=== PATIENT | male | born 1955 | race Caucasian/White ===

== ENCOUNTER 2017-08-07 21:31 | Inpatient (IN) | payer MEDICARE, MEDICAID ==
[~2017-08-07] VITALS: Ht 170.2 cm; Wt 47.6 kg
--- NOTE | 2017-08-07 21:31 | ER Report ---
History and Physical Time Seen By MD: 21:31 HPI/ROS CHIEF COMPLAINT: Vomiting,? Aspiration HISTORY OF PRESENT ILLNESS: 62-year-old male with a history of a aphasia who communicates with Ipad tablet. Brought from the custodial by EMS with vomiting and decreased O2 sats. Patient on arrival is expressing pain in his throat. My pointing in his mouth. Patient was given a tablet but did not communicate anything to us. His vital signs are stable. There were previous laboratory studies drawn earlier in the day that show potassium of 2.6. WBC count of 13,000 with a left shift, 88 neutrophils, bicarbonate of 40. Additional history is obtained from custodial paperwork. There are no recent old records on this patient. There are some custodial visits from 2015 that are noted. REVIEW OF SYSTEMS: Respiratory: No cough, no dyspnea. Cardiovascular: No chest pain, no palpitations. Gastrointestinal: As above Musculoskeletal: No back pain. Allergies: Coded Allergies: No Known Drug Allergies (Unverified , 08/07/17) Home Meds Reported Medications Cholecalciferol (Vitamin D3) (VITAMIN D3) 1,000 Unit Tablet, 1000 UNIT PO, TAB 08/07/17 Ibuprofen (IBUPROFEN) 200 Mg Tablet, 1 TAB PO Q6H, TAB 08/07/17 Acetaminophen (TYLENOL) 325 Mg Tablet, 500 MG PO, TAB 08/07/17 Past Medical/Surgical History Rhabdomyolysis, aphasia, other symbolic dysfunctions history of falling, developmental disorder of Speech and language, patient is full code Reviewed Nurses Notes: Yes Old Medical Records Reviewed: Yes Constitutional Vital Sign - Last 24 Hours 08/07/17 08/07/17 08/07/17 08/07/17 21:32 21:34 21:34 21:36 Temp 98.7 Pulse 98 98 Resp 18 24 B/P (MAP) 119/89 (99) 119/86 Pulse Ox 90 92 O2 Delivery Nasal Cannula O2 Flow Rate 1.0 08/07/17 08/07/17 08/07/17 08/07/17 21:41 21:46 21:50 21:50 Pulse 99 97 96 Resp 21 23 16 Pulse Ox 92 92 94 O2 Delivery Nasal Cannula O2 Flow Rate 3.0 08/07/17 08/07/17 08/07/17 08/07/17 21:51 21:56 22:26 22:30 Pulse 91 93 98 Resp 21 22 27 B/P (MAP) 122/88 (99) Pulse Ox 100 91 96 2/19/18 2/19/18 2/19/18 2/19/18 22:31 22:36 22:41 22:46 Pulse 93 89 91 94 Resp 19 17 18 16 Pulse Ox 98 98 99 94 2/19/18 2/19/18 2/19/18 2/19/18 22:51 22:56 23:00 23:01 Pulse 88 94 89 Resp 14 14 16 B/P (MAP) 123/89 (100) Pulse Ox 98 97 96 2/19/18 2/19/18 2/19/18 2/19/18 23:06 23:11 23:16 23:21 Pulse 86 86 88 87 Resp 22 16 14 15 Pulse Ox 97 97 97 97 2/19/18 2/19/18 2/19/18 2/19/18 23:30 23:36 23:51 23:56 Pulse 88 98 Resp 19 15 18 B/P (MAP) 115/82 (93) Pulse Ox 98 2/20/18 2/20/18 2/20/18 2/20/18 00:01 00:30 00:31 00:46 Pulse 107 90 84 Resp 24 16 16 B/P (MAP) 115/87 (96) Pulse Ox 96 98 2/20/18 2/20/18 2/20/18 2/20/18 01:00 01:16 01:30 01:31 Pulse 84 86 Resp 13 13 B/P (MAP) 108/76 (87) 111/78 (89) Pulse Ox 99 98 2/20/18 2/20/18 2/20/18 2/20/18 01:46 01:51 01:56 02:00 Pulse 87 89 85 Resp 20 20 12 B/P (MAP) 111/73 (86) Pulse Ox 98 96 96 2/20/18 2/20/18 2/20/18 2/20/18 02:01 02:06 02:11 02:16 Pulse 81 98 81 81 Resp 15 18 17 14 Pulse Ox 97 96 97 97 2/20/18 2/20/18 2/20/18 2/20/18 02:21 02:30 02:31 02:36 Pulse 80 79 80 Resp 13 13 B/P (MAP) 103/67 (79) Pulse Ox 98 97 97 Physical Exam Vital signs stable, afebrile, pulse ox 90% on 3 L General Appearance: The patient is alert, has no immediate need for airway protection and no current signs of toxicity. No acute distress HEENT: Pupils equal and round no injection. TMs normal, oropharynx with moderate erythema Respiratory: Chest is non tender, lungs are clear to auscultation. Decreased breath sounds in the right base, no Rales, or wheezing Cardiac: regular rate and rhythm Gastrointestinal: Abdomen is soft and non tender, no masses, bowel sounds normal. Musculoskeletal: Neck: Neck is supple and non tender. No lymphadenopathy Extremities have full range of motion and are non tender. No edema Skin: No rashes or lesions. DIFFERENTIAL DIAGNOSIS: After history and physical exam differential diagnosis was considered for abdominal pain including but not limited to appendicitis, cholecystitis, gastritis and urinary tract infection. Medical Decision Making Data Points Result Diagram: 08/07/17212408/08/17 0808 Laboratory Hematology Test 08/07/17 21:25 08/08/17 00:03 08/08/17 00:24 Red Blood Count 5.32 M/uL (4.00-5.60) Mean Corpuscular Volume 89.7 fL (80.0-96.0) Mean Corpuscular Hemoglobin 31.0 pg (26.0-33.0) Mean Corpuscular Hemoglobin Concent 34.6 g/dL (32.0-36.0) Red Cell Distribution Width 13.3 % (11.5-14.5) Mean Platelet Volume 7.3 fL (7.2-11.1) Neutrophils (%) (Auto) 86.2 % (39.4-72.5) Lymphocytes (%) (Auto) 5.4 % (17.6-49.6) Monocytes (%) (Auto) 6.1 % (4.1-12.4) Eosinophils (%) (Auto) 1.4 % (0.4-6.7) Basophils (%) (Auto) 0.9 % (0.3-1.4) Nucleated RBC Relative Count (auto) 0.0 /100WBC Neutrophils # (Auto) 11.9 K/uL (2.0-7.4) Lymphocytes # (Auto) 0.7 K/uL (1.3-3.6) Monocytes # (Auto) 0.8 K/uL (0.3-1.0) Eosinophils # (Auto) 0.2 K/uL (0.0-0.5) Basophils # (Auto) 0.1 K/uL (0.0-0.1) Nucleated RBC Absolute Count (auto) 0.00 K/uL Total Bilirubin 0.7 mg/dl (0.2-1.3) Aspartate Amino Transf (AST/SGOT) 35 U/L (0-35) Alanine Aminotransferase (ALT/SGPT) 36 U/L (0-56) Alkaline Phosphatase 95 U/L (0-126) C-Reactive Protein 6.7 mg/dl (<1.0) Total Protein 6.4 gm/dl (6.3-8.2) Albumin 3.1 g/dl (3.5-5.0) Amylase Level 70 U/L (0-110) Lipase 206 U/L (23-300) Urine Color Pale yellow Urine Clarity Cloudy Urine pH 6.0 pH (4.8-9.5) Urine Specific [place] 1.025 Urine Protein 30 mg/dL (NEGATIVE) Urine Glucose (UA) Negative mg/dL (NEGATIVE) Urine Ketones 40 mg/dL (NEGATIVE) Urine Blood Negative (NEGATIVE) Urine Nitrite Negative (NEGATIVE) Urine Bilirubin Moderate (NEGATIVE) Urine Urobilinogen 0.2 mg/dL (0.2-1.9) Urine Leukocyte Esterase Negative (NEGATIVE) Urine RBC 2 /HPF (0-2/HPF) Urine WBC 4 /HPF (0-5/HPF) Urine Squamous Epithelial Cells Moderate /LPF (</=FEW) Urine Transitional Epithelial Cells Few /LPF (NONE-FEW) Urine Amorphous Crystals Few /HPF Urine Bacteria Negative /HPF (NONE-FEW) Urine Hyaline Casts Few /LPF (NONE-FEW) Urine Mucus Moderate /HPF (NONE-FEW) Group A Streptococcus Screen Negative (NEGATIVE) Troponin I 0.043 ng/ml Chemistry Test 08/07/17 21:25 08/08/17 00:03 08/08/17 00:24 White Blood Count 13.8 k/uL (4.5-11.0) Red Blood Count 5.32 M/uL (4.00-5.60) Hemoglobin 16.5 g/dL (14.0-18.0) Hematocrit 47.7 % (42.0-52.0) Mean Corpuscular Volume 89.7 fL (80.0-96.0) Mean Corpuscular Hemoglobin 31.0 pg (26.0-33.0) Mean Corpuscular Hemoglobin Concent 34.6 g/dL (32.0-36.0) Red Cell Distribution Width 13.3 % (11.5-14.5) Platelet Count 382 K/uL (150-450) Mean Platelet Volume 7.3 fL (7.2-11.1) Neutrophils (%) (Auto) 86.2 % (39.4-72.5) Lymphocytes (%) (Auto) 5.4 % (17.6-49.6) Monocytes (%) (Auto) 6.1 % (4.1-12.4) Eosinophils (%) (Auto) 1.4 % (0.4-6.7) Basophils (%) (Auto) 0.9 % (0.3-1.4) Nucleated RBC Relative Count (auto) 0.0 /100WBC Neutrophils # (Auto) 11.9 K/uL (2.0-7.4) Lymphocytes # (Auto) 0.7 K/uL (1.3-3.6) Monocytes # (Auto) 0.8 K/uL (0.3-1.0) Eosinophils # (Auto) 0.2 K/uL (0.0-0.5) Basophils # (Auto) 0.1 K/uL (0.0-0.1) Nucleated RBC Absolute Count (auto) 0.00 K/uL Total Bilirubin 0.7 mg/dl (0.2-1.3) Aspartate Amino Transf (AST/SGOT) 35 U/L (0-35) Alanine Aminotransferase (ALT/SGPT) 36 U/L (0-56) Alkaline Phosphatase 95 U/L (0-126) C-Reactive Protein 6.7 mg/dl (<1.0) Total Protein 6.4 gm/dl (6.3-8.2) Albumin 3.1 g/dl (3.5-5.0) Amylase Level 70 U/L (0-110) Lipase 206 U/L (23-300) Urine Color Pale yellow Urine Clarity Cloudy Urine pH 6.0 pH (4.8-9.5) Urine Specific [place] 1.025 Urine Protein 30 mg/dL (NEGATIVE) Urine Glucose (UA) Negative mg/dL (NEGATIVE) Urine Ketones 40 mg/dL (NEGATIVE) Urine Blood Negative (NEGATIVE) Urine Nitrite Negative (NEGATIVE) Urine Bilirubin Moderate (NEGATIVE) Urine Urobilinogen 0.2 mg/dL (0.2-1.9) Urine Leukocyte Esterase Negative (NEGATIVE) Urine RBC 2 /HPF (0-2/HPF) Urine WBC 4 /HPF (0-5/HPF) Urine Squamous Epithelial Cells Moderate /LPF (</=FEW) Urine Transitional Epithelial Cells Few /LPF (NONE-FEW) Urine Amorphous Crystals Few /HPF Urine Bacteria Negative /HPF (NONE-FEW) Urine Hyaline Casts Few /LPF (NONE-FEW) Urine Mucus Moderate /HPF (NONE-FEW) Group A Streptococcus Screen Negative (NEGATIVE) Troponin I 0.043 ng/ml Urinalysis Test 08/08/17 00:03 Urine Color Pale yellow Urine Clarity Cloudy Urine pH 6.0 pH (4.8-9.5) Urine Specific [place] 1.025 Urine Protein 30 mg/dL (NEGATIVE) Urine Glucose (UA) Negative mg/dL (NEGATIVE) Urine Ketones 40 mg/dL (NEGATIVE) Urine Blood Negative (NEGATIVE) Urine Nitrite Negative (NEGATIVE) Urine Bilirubin Moderate (NEGATIVE) Urine Urobilinogen 0.2 mg/dL (0.2-1.9) Urine Leukocyte Esterase Negative (NEGATIVE) Urine RBC 2 /HPF (0-2/HPF) Urine WBC 4 /HPF (0-5/HPF) Urine Squamous Epithelial Cells Moderate /LPF (</=FEW) Urine Transitional Epithelial Cells Few /LPF (NONE-FEW) Urine Amorphous Crystals Few /HPF Urine Bacteria Negative /HPF (NONE-FEW) Urine Hyaline Casts Few /LPF (NONE-FEW) Urine Mucus Moderate /HPF (NONE-FEW) EKG/Imaging EKG Interpretation 12 lead EK Rhythm: normal sinus rhythm with wide QRS consistent with right bundle branch block [place]: Left axis deviation QRS: Right bundle branch block pattern ST segments: Nonspecific ST changes consistent with right bundle branch block, no old EKGs for comparison 12 lead EKG: Repeat at 0 125 Rhythm: Normal sinus rhythm with right bundle branch block pattern [place]: normal QRS: normal ST segments:, Nonspecific diffuse ST and T-wave changes Imaging X-ray: Three-way abdomen was obtained. I viewed the images myself on the PACS system. My interpretation of the images is: Small right pleural effusion,? Infiltrate with history of aspiration. Bowel gas pattern is nonspecific. The radiologist interpretation had no clinically significant variation from this interpretation. ED Course/Re-evaluation Clinical Indication for ER IV: Hydration, IV Access ED Course Patient was admitted to an examination room. The differential diagnoses was considered. Diagnostic studies were ordered. Patient was sent over from the custodial with a low potassium of 2.6. It was repeated and confirmed at 2.6. He may have an episode of aspiration. His chest x-ray shows right lower lobe infiltrate, no effusion, questionable duration. Patient afebrile. His troponin was noted to be mildly elevated. His EKG was showing a right bundle branch block pattern. Patient was observed for 3 hours and a repeat EKG and troponin were completed with no significant increase in his troponin. Was noted in the low indeterminate range. There was no gross increase. Case was discussed with hospitalist who accepts the patient for admission for treatment of aspiration pneumonia and hypokalemia. 08/08/2017 2:30:46 am case discussed with Kenrick Mathur hospitalist on-call, who accepts the patient for admission for treatment of aspiration pneumonia, hyperkalemia. Decision to Disposition Date: Aug 07, 2017 Decision to Disposition Time: 23:37 Depart Departure Latest Vital Signs Vital Signs Date Time Temp Pulse Resp B/P (MAP) Pulse Ox O2 Delivery O2 Flow Rate FiO2 08/08/17 02:36 80 97 08/08/17 02:31 13 08/08/17 02:30 103/67 (79) 08/07/17 21:50 Nasal Cannula 3.0 08/07/17 21:34 98.7 Impression: Primary Impression: Aspiration into lower respiratory tract Additional Impressions: Hypokalemia Expressive aphasia Vomiting Elevated troponin Condition: Improved Disposition: Admitted from ER Problem Qualifiers Primary Impression: Aspiration into lower respiratory tract Encounter type: initial encounter Qualified Codes: T17.800A - Unspecified foreign body in other parts of respiratory tract causing asphyxiation, initial encounter Additional Impressions: Vomiting Vomiting type: unspecified Vomiting Intractability: unspecified Nausea presence: unspecified Qualified Codes: R11.10 - Vomiting, unspecified LILIA COELLO DO Aug 07, 2017 21:31
[2017-08-07] MEDS ORDERED: NS(*) 0.9% 1000 ML BAG 1,000 ML IV ONE (21:34)
[2017-08-07] MEDS ORDERED: ONDANSETRON 4 MG/2 ML VIAL IVP ONE ×2 (21:35→23:45)
[2017-08-07] MEDS ORDERED: ALBUTEROL/IPRATROPIUM 3 ML NEB NEB ONE (21:35)
[2017-08-07 21:44] LABS: PLATELET COUNT, AUTOMATED 382 K/uL (150-450)
--- NOTE | 2017-08-07 22:05 | EKG ---
FACILITY: [facility] - [place] PATIENT NAME: DARIEN JACOBS : [id number] MR: [id number] V: [id number] EXAM DATE: ORDERING PHYSICIAN: LILIA COELLO TECHNOLOGIST: BAILEY Test Reason : DSYPNEA VOMITING Blood Pressure : / mmHG Vent. Rate : 093 BPM Atrial Rate : 093 BPM P-R Int : 000 ms QRS Dur : 130 ms QT Int : 388 ms P-R-T Axes : 068 -86 065 degrees QTc Int : 482 ms Appears to be sinus rhythm Left axis deviation Right bundle branch block Abnormal ECG Artifact makes interpretation difficult - recommend repeat EKG No previous ECGs available Confirmed by CLARITZA ZACARIAS ([id number]) on 08/08/2017 1:13:58 AM Referred By: Confirmed By:CLARITZA ZACARIAS
--- NOTE | 2017-08-07 22:56 | RADIOLOGY IMAGING REPORT ---
FAC[place] [facility] [place]IENT NAME: Darell Haddad : 1955 MR: [id number] V: [id number] EXAM DATE: ORDERING PHYSICIAN: LILIA COELLO TECHNOLOGIST: Location: [facility] Patient: Darell Haddad : 1955 Visit/Account:[id number] Date of Sevice: 08/07/2017 ACUTE ABDOMEN SERIES 3 VIEW HISTORY: Sore throat. Aphagia. Low O2 sats. COMPARISON: None. TECHNIQUE: PA upright view of the chest, AP supine and AP upright views of the abdomen. Chest: There is a small right pleural effusion, and there is adjacent right basilar consolidation. Th ere is a trace left pleural effusion. No pneumothorax. The cardiac and mediastinal silhouettes are wi thin normal limits. Bones and soft tissues are unremarkable. Abdomen: The distribution of bowel gas is normal, with bowel in all four quadrants as well as central ly. No free air. No dilated loops of bowel. No acute osseous abnormality. There is mild rightward pel radha tilting. There are pelvic phleboliths. IMPRESSION: 1. Small right pleural effusion. 2. Right basilar consolidation may be atelectasis or pneumonia. Follow-up chest x-ray to ensure clear ing is recommended. 3. Trace left pleural effusion. 4. Unremarkable bowel gas pattern without obstruction. Report Dictated By: Luba Rahman at 08/07/2017 10:41 PM Report E-Signed By: Luba Rahman at 08/07/2017 10:51 PM WSN:[id number]
[2017-08-07] MEDS ORDERED: CHOL10005 PO (23:18)
[2017-08-07] MEDS ORDERED: IBUP-56 PO (23:18)
[2017-08-07] MEDS ORDERED: ACET-1966 PO (23:18)
[2017-08-07] MEDS ORDERED: ASPIRIN 81 MG CHEW PO ONE (23:45)
[2017-08-07] MEDS ORDERED: KCL (*) 20 MEQ/100 ML PREMIX 100 ML IV ONE (23:45)
--- NOTE | 2017-08-08 01:52 | EKG ---
FACILITY: [facility] - [place] PATIENT NAME: DARIEN JACOBS : [id number] MR: [id number] V: [id number] EXAM DATE: ORDERING PHYSICIAN: LILIA COELLO TECHNOLOGIST: BAILEY Zavala Reason : REPEAT EKG Blood Pressure : / mmHG Vent. Rate : 087 BPM Atrial Rate : 087 BPM P-R Int : 132 ms QRS Dur : 138 ms QT Int : 404 ms P-R-T Axes : 047 245 064 degrees QTc Int : 486 ms Sinus rhythm Right bundle branch block Abnormal ECG Confirmed by CLARITZA ZACARIAS ([id number]) on 08/08/2017 2:01:34 AM Referred By: Confirmed By:CLARITZA ZACARIAS
[2017-08-08] MEDS ORDERED: NS(*) 0.9% 1000 ML BAG 500 ML IV ONE (03:10)
[2017-08-08] MEDS ORDERED: KCL 2 MEQ/ML 20 MEQ/10 ML VIAL 20 MEQ in NS(*) 0.9% 1000 ML BAG 1,000 ML IV PRN (03:29)
[2017-08-08 03:34] VITALS: BP 108/81
[2017-08-08] MEDS ORDERED: PROMETHAZINE 25 MG/ML 1 ML AMP IVP PRN (03:40)
[2017-08-08] MEDS ORDERED: AMPICILLIN/SULBACT (*) 3 GM VL 3 GM in NS(*) 0.9% 100 ML BAG 100 ML IVPB SCH (04:00)
--- NOTE | 2017-08-08 04:00 | History & Physical ---
History of Present Illness Chief Complaint Elevated WBC count and low potassium History of Present Illness 62yo male with PMHx significant for aphasia right upper extremity weakness ( apparently from CVA vs. developmental injury) who currently resides at [facility]. He is able to communicate through yes/no questions with head nods or shakes. He was reported by nursing to have had episodes of nausea with vomiting. At present, he denies any nausea/abdominal pain. He does admit to some sore throat and some pain in right hemithorax when deep breathing/ coughing. He does acknowledge some cough for past several weeks. He denied any cough when eating. He denied any sensation of fevers or chills. He denies any urinary complaints. He was evaluated in the ER and found to have RLL infiltrate with possible small effusion. He also has elevated WBC count and hypokalemia. He was recommended for admission. History Problems: (1) Expressive aphasia Status: Chronic (2) RUE weakness Status: Chronic Home Meds Reported Medications Cholecalciferol (Vitamin D3) (VITAMIN D3) 1,000 Unit Tablet, 1000 UNIT PO, TAB 08/07/17 Ibuprofen (IBUPROFEN) 200 Mg Tablet, 1 TAB PO Q6H, TAB 08/07/17 Acetaminophen (TYLENOL) 325 Mg Tablet, 500 MG PO, TAB 08/07/17 Allergies: Coded Allergies: No Known Drug Allergies (Unverified , 08/07/17) Other Social/Family Hx Family history currently unobtainable. He lives at [facility]. Hx Smoking: No Hx Alcohol Use: No Review of Systems Constitutional: No Fever, No Chills ENT: Sore Throat Cardiovascular: Chest Pain (with deep breathing/coughing) Respiratory: Cough Gastrointestinal: Nausea, Vomiting Genitourinary: No Dysuria, No Hematuria Musculoskeletal: Impaired Mobility Exam Vital Signs Vital Signs Date Time Temp Pulse Resp B/P (MAP) Pulse Ox O2 Delivery O2 Flow Rate FiO2 08/08/17 03:34 84 16 108/81 (90) 95 Nasal Cannula 2.0 08/07/17 21:34 98.7 General Appearance: Alert, Awake, Other (very thin/very little muscle mass) Neuro: Other (aphasic/right upper extremity weakness with some contracture at hand/wrist) Eyes: PERRLA ENT: Oropharynx Clear, Other (face symmetric) Neck: No Masses Cardiovascular: Regular Rate and Rhythm Respiratory: Other (greatly diminished breath sounds at right base/no wheezes/ no rales) Chest: No Tenderness GI: Abd Soft and Non-Tender : No CVA Tenderness Lymph: No Adenopathy Extremities: Warm, Perfused Medical Decision Making Data Points Result Diagram: 08/07/17212408/07/172124 Item Value Date Time Lipase 206 U/L 08/07/172124 Amylase Level 70 U/L 08/07/172124 Albumin 3.1 g/dl L 08/07/172124 Total Protein 6.4 gm/dl 08/07/172124 C-Reactive Protein 6.7 mg/dl H 08/07/172124 Troponin I 0.043 ng/ml 08/07/172124 Troponin I 0.043 ng/ml 08/08/1723 Alkaline Phosphatase 95 U/L 08/07/172124 Alanine Aminotransferase (ALT/SGPT) 36 U/L 08/07/172124 Aspartate Amino Transf (AST/SGOT) 35 U/L 08/07/172124 Total Bilirubin 0.7 mg/dl 08/07/172124 Calcium Level 8.8 mg/dl 08/07/172124 Urine Color Pale yellow 08/08/172 Urine Clarity Cloudy 08/08/172 Urine pH 6.0 pH 08/08/17 0003 Urine Specific [place] 1.025 08/08/17 0003 Urine Protein 30 mg/dL 08/08/17 0003 Urine Glucose (UA) Negative mg/dL 08/08/17 0003 Urine Ketones 40 mg/dL 08/08/17 0003 Urine Blood Negative 08/08/17 0003 Urine Nitrite Negative 08/08/17 0003 Urine Bilirubin Moderate 08/08/17 0003 Urine Urobilinogen 0.2 mg/dL 08/08/17 0003 Urine Leukocyte Esterase Negative 08/08/17 0003 Urine RBC 2 /HPF 08/08/17 0003 Urine WBC 4 /HPF 08/08/17 0003 Urine Squamous Epithelial Cells Moderate /LPF H 08/08/17 0003 Urine Transitional Epithelial Cells Few /LPF 08/08/17 0003 Urine Amorphous Crystals Few /HPF 08/08/17 0003 Urine Bacteria Negative /HPF 08/08/17 0003 Urine Hyaline Casts Few /LPF 08/08/17 0003 Urine Mucus Moderate /HPF H 08/08/17 0003 Influenza Virus Type A (PCR) Negative 08/07/17 1045 Influenza Virus Type B (PCR) Negative 08/07/17 1045 Group A Streptococcus Screen Negative 08/08/17 0003 EKG / Imaging EKG Interpretation PATIENT NAME: DARIEN HADDAD : [id number] MR: [id number] V: [id number] EXAM DATE: ORDERING PHYSICIAN: LILIA COELLO TECHNOLOGIST: BAILEY Test Reason : REPEAT EKG Blood Pressure : / mmHG Vent. Rate : 087 BPM Atrial Rate : 087 BPM P-R Int : 132 ms QRS Dur : 138 ms QT Int : 404 ms P-R-T Axes : 047 245 064 degrees QTc Int : 486 ms Sinus rhythm Right bundle branch block Abnormal ECG Confirmed by CLARITZA ZACARIAS ([id number]) on 08/08/2017 2:01:34 AM Referred By: Confirmed By:CLARITZA ZACARIAS Imaging PATIENT NAME: Darien Haddad : 1955 MR: [id number] V: [id number] EXAM DATE: [id number] ORDERING PHYSICIAN: LILIA COELLO TECHNOLOGIST: Location: [facility] [place] Patient: Darien Haddad : 1955 Visit/Account:[id number] Date of Sevice: 08/07/2017 ACUTE ABDOMEN SERIES 3 VIEW HISTORY: Sore throat. Aphagia. Low O2 sats. COMPARISON: None. TECHNIQUE: PA upright view of the chest, AP supine and AP upright views of the abdomen. Chest: There is a small right pleural effusion, and there is adjacent right basilar consolidation. There is a trace left pleural effusion. No pneumothorax. The cardiac and mediastinal silhouettes are within normal limits. Bones and soft tissues are unremarkable. Abdomen: The distribution of bowel gas is normal, with bowel in all four quadrants as well as centrally. No free air. No dilated loops of bowel. No acute osseous abnormality. There is mild rightward pelvic tilting. There are pelvic phleboliths. IMPRESSION: 1. Small right pleural effusion. 2. Right basilar consolidation may be atelectasis or pneumonia. Follow-up chest x-ray to ensure clearing is recommended. 3. Trace left pleural effusion. 4. Unremarkable bowel gas pattern without obstruction. Report Dictated By: Luba Rahman at 08/07/2017 10:41 PM Report E-Signed By: Luba Rahman at 08/07/2017 10:51 PM WSN:[id number] Assessment and Plan Problems: (1) Pneumonia Status: Acute Assessment & Plan: It appears he has a RLL pneumonia. It is possible it is a result of aspiration. Will place on IV Unasyn 3gm q6hrs. Will give supplemental oxygen as needed. Will try chest physiotherapy to help clear secretions. Will have speech/swallowing therapy see him as well. (2) Hypokalemia Status: Acute Assessment & Plan: Most likely related to emesis. Will replace with IV fluids. Watch labs. (3) Expressive aphasia Status: Chronic Assessment & Plan: Apparently long standing. He has been communicating fairly effectively. Venous Thromboembolism Antithrombotics Is Pt On Any Antithrombotics?: Yes Exam Sepsis Risk: No Definite Risk CLARITZA ZACARIAS MD Aug 08, 2017 04:00
[2017-08-08] MEDS ORDERED: KCL/NS* 20 MEQ/1000 ML PREMIX 1,000 ML IV ONE (04:07)
[2017-08-08] MEDS ORDERED: KCL (*) 20 MEQ/100 ML PREMIX 100 ML IV ONE (05:00)
[2017-08-08 07:29] VITALS: BP 106/76
[2017-08-08] MEDS: guaiFENesin SYR 200MG/10ML UDC PO SCH ×2 (08:28→21:22)
[2017-08-08] MEDS: ENOXAPARIN 40 MG/0.4ML SYR SC SCH (08:28)
[2017-08-08 09:00] VITALS: Ht 170.2 cm; Wt 47.6 kg
[2017-08-08] MEDS ORDERED: POTASSIUM CHL PWDR 20 MEQ PKT PO ONE (09:50)
[2017-08-08] MEDS ORDERED: INFLUENZA VIRUS VAC 0.5 ML SYR IM ONLY ONE (10:00)
[2017-08-08] MEDS: AMPICILLIN/SULBACT (*) 3 GM VL 3 GM in NS(*) 0.9% 100 ML BAG 100 ML IVPB SCH ×3 (10:32→21:22)
[2017-08-08 11:08] VITALS: BP 110/73
[2017-08-08] MEDS ORDERED: BENZOCAINE/MENTHOL 1 EACH LOZG PO PRN (12:30)
[2017-08-08] MEDS ORDERED: LIDOCAINE 2% VISC SLN 15ML UDC PO PRN (12:30)
--- NOTE | 2017-08-08 12:33 | Hospitalist Progress Note ---
Subjective Progress Notes Subjective No problems overnight. He is still reporting throat pain. Physical Exam Vital Signs Date Time Temp Pulse Resp B/P (MAP) Pulse Ox O2 Delivery O2 Flow Rate FiO2 08/08/17 11:41 95 Nasal Cannula 4.0 08/08/17 11:08 98.4 88 18 110/73 (85) Intake and Output 08/09/17 07:00 Intake Total 100 ml Output Total 200 ml Balance -100 ml Intake IV Total 100 ml Output Urine Total 200 ml General Appearance: Alert, Awake, No Acute Distress Cardiovascular: Regular Rate and Rhythm Respiratory: Clear to Auscultation (but doesn't really cooperate with the exam) Result Diagram: 08/07/17212408/08/17 0808 Assessment and Plan Problems: (1) Pneumonia Status: Acute Assessment & Plan: It appears he has a RLL pneumonia. It is possible it is a result of aspiration. On IV Unasyn 3gm q6hrs. Will give supplemental oxygen as needed. Will try chest physiotherapy to help clear secretions. Will have speech/ swallowing therapy see him as well. On a dysphagia 2 diet with nectar thickened liquids. (2) Hypokalemia Status: Acute Assessment & Plan: Most likely related to emesis. Will replace with IV fluids and give one dose of oral. Watch labs. (3) Expressive aphasia Status: Chronic Assessment & Plan: Apparently long standing. He has been communicating fairly effectively. Exam Sepsis Risk: No Definite Risk IDRIS PINEDA MD Aug 08, 2017 12:33
[2017-08-08 16:27] VITALS: BP 111/70
[2017-08-08] MEDS: KCL/NS* 20 MEQ/1000 ML PREMIX 1,000 ML IV PRN (18:11)
[2017-08-08 19:30] VITALS: BP 103/92
[2017-08-08 22:59] VITALS: BP 106/65
[2017-08-09 03:01] VITALS: BP 105/66
[2017-08-09] MEDS: AMPICILLIN/SULBACT (*) 3 GM VL 3 GM in NS(*) 0.9% 100 ML BAG 100 ML IVPB SCH ×2 (03:29→09:30)
[2017-08-09 06:11] LABS: PLATELET COUNT, AUTOMATED 272 K/uL (150-450)
[2017-08-09] MEDS: KCL/NS* 20 MEQ/1000 ML PREMIX 1,000 ML IV PRN (06:23)
[2017-08-09] MEDS: ENOXAPARIN 40 MG/0.4ML SYR SC SCH (09:32)
[2017-08-09] MEDS: guaiFENesin SYR 200MG/10ML UDC PO SCH (10:26)
[2017-08-09 10:30] VITALS: BP 109/78
[2017-08-09] MEDS ORDERED: AMOX600S32 PO (10:41)
[2017-08-09] MEDS ORDERED: POTA20PA10 PO (10:41)
--- NOTE | 2017-08-09 10:48 | Hospitalist Depart ---
Discharge Summary Reason for Hosp/Final Diag: (1) Aspiration pneumonia Status: Acute Hospital Course & Plan: Patient presented after a witnessed aspiration event. X -ray showed possible consolidation in the right lung. He did have an elevated WBC and temperature. He was treated empirically with Unasyn and now converted him to oral antibiotics. (2) Hypokalemia Status: Acute Hospital Course & Plan: He will discharge on oral potassium supplements. (3) Expressive aphasia Status: Chronic Hospital Course & Plan: He will discharged on an aphasia type 2 diet. Departure Latest Vital Signs Vital Signs 08/09/17 08/09/17 10:30 10:37 Temp 98.9 Pulse 85 Resp 20 B/P (MAP) 109/78 (88) Pulse Ox 91 O2 Delivery Nasal Cannula O2 Flow Rate 4.0 Weight (Pounds): 105 Result Diagram: 08/09/1753208/09/17532 Condition: Improved Discharge: Senior Living Discharge Instructions Home Meds Active Scripts Potassium Chloride (KLOR-CON) 20 Meq Packet, 20 MEQ PO QDAY, #30 PACKET Prov:SPRING DEVLIN DO 08/09/17 Amoxicillin/Pot Clav 600-42.9 Mg/5 Ml Susp (AMOX TR-K CLV 600-42.9/5 SUSP) 600 Mg/5 Ml Susp.recon, 7 ML PO BID for 6 Days, #1 ML Prov:SPRING DEVLIN DO 08/09/17 Reported Medications Cholecalciferol (Vitamin D3) (VITAMIN D3) 1,000 Unit Tablet, 1000 UNIT PO, TAB every Mon08/07/17 Ibuprofen (IBUPROFEN) 200 Mg Tablet, 1 TAB PO TID Y for PAIN, TAB 08/07/17 Acetaminophen (TYLENOL) 325 Mg Tablet, 500 MG PO BID, TAB 08/07/17 Diet: Regular (Dysphasia Type 2) Activity: As Tolerated Copies to: STEPHANIE MALLOY MD Venous Thromboembolism Antithrombotics Is Pt On Any Antithrombotics?: Yes SPRING DEVLIN DO Aug 09, 2017 10:48
--- NOTE | 2017-08-09 11:23 | SWALLOW EVALUATION ---
SPEECH THERAPY computational theory scientist: Kiera Johnston MS, CCC-[employer] Type of Assessment: Dysphagia Evaluation Patient: Darell Haddad : 1955, 62yrs Evaluation Date: 08/09/17 BACKGROUND The patient is an 62yr old male admitted to [facility] suspected pneumonia suspicious for aspiration pneumonia. 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 He communicates primarily with hand gestures and yes/no head gestures. An ST swallow evaluation was ordered to further evaluate swallow structure and function. PREVIOUS LEVEL OF FUNCTION: Primary Medical Diagnosis: Pneumonia, post CVA Prior Level of Function: Lives at SNF Medical Complications/Past Medical History: See chart for details Pain Scale (0-10): denies LOC / Participation: alert Follows instructions: intermittent, declined to follow some instructions. Functional Communication Deficits impact swallow function/safety, or response to therapy: Yes VOICE Vocal Deficits: n/a no vocal communication Changes to vocal quality: n/a DYSPHAGIA Dysphagia Risk Evaluation Protocol DREP: Water Swallow Test: fail, Puree Swallow Test: Pass with precautions. Dysphagia Severity Rating Scale: Level 3: moderate dysphagia. Potential for aspiration is high second to oral deficits including reduced lingual, labial movement, reduced mastication, anterior bolus, oral stasis. Supplemental Oxygen Use: Yes. Nasal Cannula 4L Oxygen Saturation: 92-94%. Remains stable during liquid/food trials Respiratory Rate: Remains stable throughout food/liquid trials. COPD Dx: no Oral Structure and Function: reduced lingual, labial movement, reduced mastication, anterior bolus, oral stasis. Pain with Swallow: Denies Respiratory/Swallow Coordination: Poor coordination. Oral breathing during bolus preparation. Oral Stage Oral Stage Dysphagia: Yes. Moderate. Poor Respiratory/Swallow coordination. Poor lingual, labial movement. Open mouth posture with liquid intake. Pt poor liquid into mouth without closing lips on cup. Declined spoon or straw trial. Pt trialed nectar liquids and puree only (yogurt). Declined to trial other foods. Thin liquids not trialed d/t high risk of aspiration 2nd to oral stage deficits/bolus intake technique Pharyngeal Stage Pharyngeal Stage Dysphagia: Suspected. Oral stage deficits as described above increase aspiration risk of liquids and solids. Indication of acute aspiration witnessed or reported by patient, family or staff : Yes Aspiration Risk: Increased ST ASSESSMENT SUMMARY DYSPHAGIA Oral Stage Dysphagia: Yes. Moderate. Poor Respiratory/Swallow coordination. Poor lingual, labial movement. Open mouth posture with liquid intake. Pt poor liquid into mouth without closing lips on cup. Declined spoon or straw trial. Pt trialed nectar liquids and puree only (yogurt). Declined to trial other foods. Thin liquids not trialed d/t high risk of aspiration 2nd to oral stage deficits/bolus intake technique. Pharyngeal stage dysphagia suspected. Oral stage deficits as described above increase aspiration risk of liquids and solids. Indication of acute aspiration witnessed or reported by patient, family or staff : Yes Aspiration Risk: Increased RECOMMENDATIONS 1. Diet Modification: Food: Dysphagia 2, Liquids: nectar thick liquids 2. Speech Therapy: Continue with speech therapy at SNF per POC as established by on site [employer] 3. Pills: crush 4. Further Evaluation: Pt scheduled for DC from [facility] this afternoon. Recommend pt return as an outpatient for an MBS. Thank you for this referral. Kiera Johnston M.S., [facility]-[employer] Speech Therapist LEANNE
--- NOTE | 2017-08-09 15:54 | Medical Nutrition Therapy ---
Nutrition Anthropometrics Height (Inches): 67.00 Height (Calculated Centimeters: 170.062523 Weight (Pounds): 105 Weight (Calculated Kilograms): 47.627 BMI Calculated: 16.44 Griffin Nutrition Score: Probably Inadequate Griffin Nutrition Risk Score: 16 Dietary Referral Nutrition Risk Factors: Nutrition Risk Comment: aspiration pneumonia Physical Findings Physical Appearance: Underweight BMI<19 Skin Appearance Skin Appearance: Edema Edema Location Modifier: Edema Location: Type of Edema: Degree of Edema: Gastrointestinal Symptoms GI Symtoms: Vomiting Tube Present: Bowel Sounds: Recent Bowel Pattern: Stool Characteristics: Nutritional Diagnosis Nutritional Risk Acuity 2: Dysphagia Nutritional Acuity: 2-Moderate Nutrition Etiology: Physiological Causes Nutrition Problem/Etiology/Sym: Inadequate oral intake related to physiological causes as evidenced by expressive aphasia and need for dysphagia 2 diet. Energy Requirement: 1428 (30kcal/kg) Adjusted Energy Requirement Re: 1190 (25mL/kg) Protein Requirement: 47 (1g/kg) Diet Type: Dysphagia Stage 2, Thickened Liquid Nutrition Intervention: Encourage intake, Incr diet as tolerated Nutrition Monitoring & Eval Nutrition Goals: Eat 50-100% Meal RD Patient Assessment Time: [address] Assessment Type: RD Assessment Patient Nutrition Acuity: 2-Moderate Follow Up Date: Aug 09, 2017 Nutritional Comment: 08/07) Pt. admitted with elevated WBC and hypokalemia, RLL pneumonia with possible aspiration.Pt. has hx. 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 Speech evaluation has been ordered. Dysphagia was noted in chart. Labs: 08/07) K 2.6, Chloride 72, Co2 43, CRP 6.7, Alb 3.1. Pt on Clear Liquid Diet. No current po intake. 08/09) Pt. diet was changed to nectar thick liquids and dysphagia 2 following speech eval. Labs: Na 132, K 3.1, Ca 7.8, Alb 2.2 po intake 25% x 1 meal. Plans to DC today to [facility] CONNOR DA SILVA Aug 09, 2017 15:51
== END 2017-08-09 15:13 | DRG 178 ==
LOC: ER 21:42 → MED 08-08 02:38
PROVIDERS: ADMIT Internal Medicine; ATTEND Internal Medicine
DX: J69.0 Pneumonitis due to inhalation of food and vomit (principal); T17.810A Gastric contents in other parts of respiratory tract causing asphyxiation, initial encounter; E44.0 Moderate protein-calorie malnutrition; Z68.1 Body mass index [BMI] 19.9 or less, adult; F80.9 Developmental disorder of speech and language, unspecified; R11.2 Nausea with vomiting, unspecified; E87.6 Hypokalemia; R79.89 Other specified abnormal findings of blood chemistry; M62.81 Muscle weakness (generalized); R07.0 Pain in throat; Z91.81 History of falling
CPT/HCPCS: 36415; 74022; 81001; 82040; 82150; 82247; 82310; 82374; 82435; 82565; 82947; 83690; 83735; 84075; 84132; 84155; 84295; 84450; 84460; 84484; 84520; 85025; 86140; 87502; 87880; 93005; 94640; 96361; 96365; 96366; 96375; 96376; 99285; J0295; J1650; J2405; J3480; J7030; J7050

== ENCOUNTER → 2017-08-07 | Outpatient (CLI) | payer MEDICARE, MEDICAID ==
[~2017-08-07] MED LIST: ACET-1966 PO; AMOX600S32 PO; CHOL10005 PO; IBUP-56 PO; POTA20PA10 PO
[2017-08-08 09:00] VITALS: BMI 16.4
== END ==
LOC: AMB 21:06
PROVIDERS: ATTEND Nurse Practitioner
DX: R11.2 Nausea with vomiting, unspecified (principal); I48.91 Unspecified atrial fibrillation
CPT/HCPCS: A0425; A0427

== ENCOUNTER → 2017-08-07 | Outpatient (REF) | payer MEDICARE, MEDICAID ==
[~2017-08-07] MED LIST changes: -AMOX600S32 PO; -POTA20PA10 PO
== END ==
LOC: ZZLCC 11:42
PROVIDERS: ATTEND Family Medicine
DX: R09.81 Nasal congestion (principal); R09.89 Other specified symptoms and signs involving the circulatory and respiratory systems; G44.83 Primary cough headache
CPT/HCPCS: 87502

== ENCOUNTER 2017-08-10 10:03 | Inpatient (IN) | payer MEDICARE, MEDICAID ==
[2017-08-08 09:00] VITALS: Ht 170.2 cm; Wt 52.3 kg
[~2017-08-10] VITALS: Ht 170.2 cm; Wt 52.3 kg
[~2017-08-10 10:03] MED LIST changes: +AMOX600S32 PO; +POTA20PA10 PO
--- NOTE | 2017-08-10 10:08 | ER Report ---
History and Physical Time Seen By MD: 10:07 HPI/ROS CHIEF COMPLAINT: Right-sided abdominal pain HISTORY OF PRESENT ILLNESS: Patient is a 62-year-old male who presents to the emergency department for evaluation of right-sided abdominal pain. Patient was recently minutes the hospital after suspected aspiration and right lower lobe pneumonia. He was treated empirically with IV antibiotics was discharged yesterday. Patient has prior history of stroke and has expressive aphasia but is able to answer questions with yes or no. Patient states he's not had a bowel movement in the last 5 days REVIEW OF SYSTEMS: Constitutional: No fever, no chills. Eyes: No discharge. ENT: No sore throat. Cardiovascular: No chest pain, no palpitations. Respiratory: No cough, no shortness of breath. Gastrointestinal: Abdominal pain most severe in the right lower quadrant Genitourinary: No hematuria. Musculoskeletal: No back pain. Skin: No rashes. Neurological: No headache. Allergies: Coded Allergies: No Known Drug Allergies (Unverified , 08/10/17) Home Meds Active Scripts Potassium Chloride (KLOR-CON) 20 Meq Packet, 20 MEQ PO QDAY, #30 PACKET Prov:SPRING DEVLIN 08/09/17 Amoxicillin/Pot Clav 600-42.9 Mg/5 Ml Susp (AMOX TR-K CLV 600-42.9/5 SUSP) 600 Mg/5 Ml Susp.recon, 7 ML PO BID for 6 Days, #1 ML Prov:SPRING DEVLIN 08/09/17 Reported Medications Cholecalciferol (Vitamin D3) (VITAMIN D3) 1,000 Unit Tablet, 1000 UNIT PO, TAB every Mon08/07/17 Ibuprofen (IBUPROFEN) 200 Mg Tablet, 1 TAB PO TID Y for PAIN, TAB 08/07/17 Acetaminophen (TYLENOL) 325 Mg Tablet, 500 MG PO BID, TAB 08/07/17 Past Medical/Surgical History Recent admission for pneumonia. History of CVA and has chronic expressive aphasia but is able to answer questions by nodding yes or shaking his head no. Hx Smoking: No Hx Alcohol Use: No Constitutional Vital Sign - Last 24 Hours 08/10/17 08/10/17 08/10/17 08/10/17 10:12 10:30 11:23 11:30 Temp 98.6 Pulse 114 92 98 Resp 16 B/P (MAP) 119/79 119/87 (98) 125/74 (91) 114/82 (93) Pulse Ox 94 99 95 O2 Delivery Oxy Mask 08/10/17 08/10/17 08/10/17 13:00 13:30 14:00 Pulse 93 92 B/P (MAP) 106/65 (79) 103/66 (78) 109/76 (87) Pulse Ox 96 96 Intake and Output 08/10/17 08/10/17 08/11/17 15:00 23:00 07:00 Intake Total 1000 ml Balance 1000 ml Physical Exam General/Constitutional: Patient is awake, alert, nontoxic and in no acute respiratory distress. Patient has expressive aphasia but is able to answer questions by nodding yes or shaking his head no Head: Normocephalic and atraumatic. Eyes: Conjunctival clear, Pupils are equal and reactive to light. Extraocular muscles are intact and symmetrical. Sclera are clear and anicteric. Ears:External canals are clear. Tympanic membranes are clear with normal landmarks and light reflex. Nares: No rhinorrhea or bleeding. Turbinates are pink and moist. Oropharyngeal: Mucous membranes are moist. There is no pharyngeal erythema or exudate. There are no palatal petechiae. Uvula is midline and symmetrical. Neck: Supple, no adenopathy. Cardiovascular: Heart is regular rate and rhythm without audible murmurs, rubs or gallops. Pulmonary: Lungs are clear to auscultation bilaterally. There are no wheezes, rales, or rhonchi. Chest rise is symmetrical Abdomen: Soft, diffuse tenderness specifically in the right upper and lower quadrants. No rebound tenderness is elicited. Extremities: No gross deformities, No peripheral cyanosis. Able to move all 4 extremities. Neuro: Alert , able to respond to questions by shaking his head yes or nodding no. Skin: No rashes, skin is warm dry and well perfused. Medical Decision Making Data Points Result Diagram: 08/10/17 1020 08/10/17 1020 Laboratory Hematology Test 08/10/17 10:20 08/10/17 11:18 Red Blood Count 5.17 M/uL (4.00-5.60) Mean Corpuscular Volume 90.3 fL (80.0-96.0) Mean Corpuscular Hemoglobin 30.7 pg (26.0-33.0) Mean Corpuscular Hemoglobin Concent 34.0 g/dL (32.0-36.0) Red Cell Distribution Width 13.4 % (11.5-14.5) Mean Platelet Volume 7.3 fL (7.2-11.1) Neutrophils (%) (Auto) 83.3 % (39.4-72.5) Lymphocytes (%) (Auto) 4.7 % (17.6-49.6) Monocytes (%) (Auto) 5.1 % (4.1-12.4) Eosinophils (%) (Auto) 5.6 % (0.4-6.7) Basophils (%) (Auto) 1.3 % (0.3-1.4) Nucleated RBC Relative Count (auto) 0.0 /100WBC Neutrophils # (Auto) 10.5 K/uL (2.0-7.4) Lymphocytes # (Auto) 0.6 K/uL (1.3-3.6) Monocytes # (Auto) 0.6 K/uL (0.3-1.0) Eosinophils # (Auto) 0.7 K/uL (0.0-0.5) Basophils # (Auto) 0.2 K/uL (0.0-0.1) Nucleated RBC Absolute Count (auto) 0.01 K/uL Sodium Level 133 mmol/L (137-145) Potassium Level 2.9 mmol/L (3.5-5.0) Chloride Level 87 mmol/L (98-107) Carbon Dioxide Level 37 mmol/L (22-30) Blood Urea Nitrogen 11 mg/dl (9-21) Creatinine 0.70 mg/dl (0.66-1.25) Glomerular Filtration Rate Calc > 60.0 Random Glucose 100 mg/dl (75-110) Calcium Level 8.4 mg/dl (8.4-10.2) Total Bilirubin 0.6 mg/dl (0.2-1.3) Aspartate Amino Transf (AST/SGOT) 36 U/L (0-35) Alanine Aminotransferase (ALT/SGPT) 37 U/L (0-56) Alkaline Phosphatase 88 U/L (0-126) Total Protein 6.0 gm/dl (6.3-8.2) Albumin 2.9 g/dl (3.5-5.0) Lipase 198 U/L (23-300) Helicobacter pylori IgG Antibody Positive (NEGATIVE) Urine Color Trena Urine Clarity Cloudy Urine pH 5.0 pH (4.8-9.5) Urine Specific [place] 1.031 Urine Protein 30 mg/dL (NEGATIVE) Urine Glucose (UA) Negative mg/dL (NEGATIVE) Urine Ketones Trace mg/dL (NEGATIVE) Urine Blood Negative (NEGATIVE) Urine Nitrite Negative (NEGATIVE) Urine Bilirubin Small (NEGATIVE) Urine Urobilinogen 4.0 mg/dL (0.2-1.9) Urine Leukocyte Esterase Negative (NEGATIVE) Urine RBC 3 /HPF (0-2/HPF) Urine WBC 7 /HPF (0-5/HPF) Urine Squamous Epithelial Cells Few /LPF (</=FEW) Urine Bacteria Negative /HPF (NONE-FEW) Urine Hyaline Casts Few /LPF (NONE-FEW) Urine Mucus Few /HPF (NONE-FEW) Chemistry Test 08/10/17 10:20 08/10/17 11:18 White Blood Count 12.6 k/uL (4.5-11.0) Red Blood Count 5.17 M/uL (4.00-5.60) Hemoglobin 15.9 g/dL (14.0-18.0) Hematocrit 46.7 % (42.0-52.0) Mean Corpuscular Volume 90.3 fL (80.0-96.0) Mean Corpuscular Hemoglobin 30.7 pg (26.0-33.0) Mean Corpuscular Hemoglobin Concent 34.0 g/dL (32.0-36.0) Red Cell Distribution Width 13.4 % (11.5-14.5) Platelet Count 363 K/uL (150-450) Mean Platelet Volume 7.3 fL (7.2-11.1) Neutrophils (%) (Auto) 83.3 % (39.4-72.5) Lymphocytes (%) (Auto) 4.7 % (17.6-49.6) Monocytes (%) (Auto) 5.1 % (4.1-12.4) Eosinophils (%) (Auto) 5.6 % (0.4-6.7) Basophils (%) (Auto) 1.3 % (0.3-1.4) Nucleated RBC Relative Count (auto) 0.0 /100WBC Neutrophils # (Auto) 10.5 K/uL (2.0-7.4) Lymphocytes # (Auto) 0.6 K/uL (1.3-3.6) Monocytes # (Auto) 0.6 K/uL (0.3-1.0) Eosinophils # (Auto) 0.7 K/uL (0.0-0.5) Basophils # (Auto) 0.2 K/uL (0.0-0.1) Nucleated RBC Absolute Count (auto) 0.01 K/uL Glomerular Filtration Rate Calc > 60.0 Calcium Level 8.4 mg/dl (8.4-10.2) Total Bilirubin 0.6 mg/dl (0.2-1.3) Aspartate Amino Transf (AST/SGOT) 36 U/L (0-35) Alanine Aminotransferase (ALT/SGPT) 37 U/L (0-56) Alkaline Phosphatase 88 U/L (0-126) Total Protein 6.0 gm/dl (6.3-8.2) Albumin 2.9 g/dl (3.5-5.0) Lipase 198 U/L (23-300) Helicobacter pylori IgG Antibody Positive (NEGATIVE) Urine Color Trena Urine Clarity Cloudy Urine pH 5.0 pH (4.8-9.5) Urine Specific [place] 1.031 Urine Protein 30 mg/dL (NEGATIVE) Urine Glucose (UA) Negative mg/dL (NEGATIVE) Urine Ketones Trace mg/dL (NEGATIVE) Urine Blood Negative (NEGATIVE) Urine Nitrite Negative (NEGATIVE) Urine Bilirubin Small (NEGATIVE) Urine Urobilinogen 4.0 mg/dL (0.2-1.9) Urine Leukocyte Esterase Negative (NEGATIVE) Urine RBC 3 /HPF (0-2/HPF) Urine WBC 7 /HPF (0-5/HPF) Urine Squamous Epithelial Cells Few /LPF (</=FEW) Urine Bacteria Negative /HPF (NONE-FEW) Urine Hyaline Casts Few /LPF (NONE-FEW) Urine Mucus Few /HPF (NONE-FEW) Urinalysis Test 08/10/17 11:18 Urine Color Trena Urine Clarity Cloudy Urine pH 5.0 pH (4.8-9.5) Urine Specific [place] 1.031 Urine Protein 30 mg/dL (NEGATIVE) Urine Glucose (UA) Negative mg/dL (NEGATIVE) Urine Ketones Trace mg/dL (NEGATIVE) Urine Blood Negative (NEGATIVE) Urine Nitrite Negative (NEGATIVE) Urine Bilirubin Small (NEGATIVE) Urine Urobilinogen 4.0 mg/dL (0.2-1.9) Urine Leukocyte Esterase Negative (NEGATIVE) Urine RBC 3 /HPF (0-2/HPF) Urine WBC 7 /HPF (0-5/HPF) Urine Squamous Epithelial Cells Few /LPF (</=FEW) Urine Bacteria Negative /HPF (NONE-FEW) Urine Hyaline Casts Few /LPF (NONE-FEW) Urine Mucus Few /HPF (NONE-FEW) EKG/Imaging Imaging MR: [id number] V: [id number] EXAM DATE: ORDERING PHYSICIAN: MANN MURILLO TECHNOLOGIST: Location: [facility] [place] Patient: Darell Haddad : 1955 Visit/Account:[id number] Date of Sevice: 08/10/2017 ABDOMEN/PELVIS WITH CONTRAST HISTORY: History of pneumonia, right lower quadrant pain TECHNIQUE: Following administration of IV contrast contiguous axial images acquired through the abdomen/pelvis. Coronal and sagittal reformatting also performed. Dose Lowering Technique One of the following dose optimization techniques was utilized in the performance of this exam: Automated exposure control; adjustment of the mA and/ or kV according to the patient's size; or use of an iterative reconstruction technique. Specific details can be referenced in the facility's radiology CT exam operational policy. CONTRAST: 75 mL Isovue-370 COMPARISON: None. FINDINGS: Visualized lung bases: There are moderate bilateral posterior layering pleural effusions and airspace consolidation in the dependent portion of both lower lobes, right greater than left consistent with compressive atelectasis and or developing infiltrates. Hepatobiliary: There is a 1.5 cm hypoattenuating lesion in the dome of the right lobe the liver. CT Hounsfield units of 10 suggest this is not a simple cyst. There are smaller hypoattenuating lesions within the liver that are too small to characterize. Spleen: Negative. Adrenals: Negative. Pancreas: Negative. Kidneys ureters or bladder: There are several subcentimeter hypoattenuating lesions in the left kidney that are too small to characterize. The bladder wall appears moderately thickened. The bladder dome enhances with contrast Genitalia: Negative. GI: The appendix appears diffusely thickened and enhances measuring 1 cm in diameter. The terminal ileum appears mildly dilated small bowel feces suggesting stasis. There is extensive abdominal and pelvic ascites present and numerous omental and peritoneal implants. This combination of findings is suspicious for an appendiceal malignancy with metastases. There are multiple nodular densities in the left upper quadrant of abdomen which may represent additional implants. There are multiple enhancing lymph nodes in the right lower quadrant. A banking representative lymph node measures 1.2 x 0.7 cm there is a 1.4 x 0.6 cm external iliac lymph node on the right . There are bilateral iliac lymph nodes and multiple retroperitoneal lymph nodes.. A 1.8 x 1.4 cm aortocaval lymph node just above the iliac bifurcation... Incidentally noted is a moderate amount of fluid in the gastric fundus and lower esophagus. The wall of the gastric antrum and gastric body is also appears diffusely thickened. Vessels/spaces/nodes: As above Bones/soft tissues: There is a small right inguinal hernia containing fat Additional findings: None pertinent. IMPRESSION: There is a large amount of abdominal and pelvic ascites present and numerous omental and peritoneal implants. The appendix is diffusely enhancing and thickened measuring up to 1 cm in diameter. There are multiple retroperitoneal lymph nodes and mesenteric lymph nodes the right lower quadrant. These changes are concerning for an appendiceal malignancy.. Also noted however is diffuse thickening of the wall of the gastric body and antrum moderate fluid distention of the gastric fundus and dilated distal esophagus. Gastric malignancy is also included in the differential diagnosis. The bladder wall is moderately thickened with enhancement of the bladder dome. Cystoscopy may be helpful 1.5 cm hypoattenuating lesion in the dome of the liver with CT Hounsfield units of 10 suggests a simple cyst. There are moderate bilateral posterior layering pleural effusions and airspace consolidation in the dependent portion of both lower lobes, right greater than left consistent with compressive atelecta is and or developing infiltrates. Results were called to MANN MURILLO at 08/10/2017 11:54 AM. Report Dictated By: Lisa Anguiano MD at 08/10/2017 11:33 AMReport E-Signed By : Lisa Anguiano MD at 08/10/2017 11:57 AM WSN:[id number] ED Course/Re-evaluation ED Course 08/10/2017 10:33:55 am and at this time will be abdominal workup including abdominal labs CT scan of the abdomen and pelvis. Patient currently being treated for right lower lobe pneumonia which certainly could be causing his discomfort. Because symptoms are worse we will continue with an abdominal workup at this time. 08/10/2017 1:59:10 pm case was discussed with general surgery, Dr Mckeon; patient offered admission under the internal medicine service general surgical consult to obtain paracentesis fluid sent for cytology and also to secondarily treat the pain. Patient and family agree to this plan at this time. Re-evaluation 08/10/2017 12:55:56 pm waiting to hear back from general surgery with regard to this patient. CT scan is concerning for abdominal malignancy which apparently would be a new diagnosis for this patient. I did explain to the patient as well as family members findings of CT scan which showed abdominal ascites concern for of thickening of the appendix as well as the of the stomach which could represent either gastric or appendiceal carcinoma. I further explained that we will discuss the case with Dr. Hanley as to what the best disposition at this time would be. Patient is as might be expected upset as his family but understands the CT findings along with concerns for possible cancer. Decision to Disposition Date: Aug 10, 2017 Decision to Disposition Time: 14:02 Depart Departure Latest Vital Signs Vital Signs Date Time Temp Pulse Resp B/P (MAP) Pulse Ox O2 Delivery O2 Flow Rate FiO2 08/10/17 14:00 109/76 (87) 08/10/17 13:30 92 96 08/10/17 10:12 98.6 16 Oxy Mask Impression: Primary Impression: Ascites, malignant Condition: Condition Unchanged Disposition: Admitted from ER (to Dr Mathur) Referrals: STEPHANIE MALLOY MD (PCP) MANN MURILLO MD Aug 10, 2017 10:08
[2017-08-10] MEDS ORDERED: NS(*) 0.9% 1000 ML BAG 1,000 ML IV ONE ×2 (10:13→14:56)
[2017-08-10] MEDS ORDERED: KETOROLAC 15 MG/ML VIAL IVP ONE (10:15)
[2017-08-10 10:37] LABS: PLATELET COUNT, AUTOMATED 363 K/uL (150-450)
[2017-08-10] MEDS ORDERED: PANTOPRAZOLE SOD 40 MG IV VIAL IVP ONE (10:45)
[2017-08-10] MEDS ORDERED: IOPAMIDOL 76% 75 ML INFUS BTL 75 ML ONE (10:56)
[2017-08-10] MEDS ORDERED: fentaNYL CITR 100 MCG/2 ML AMP IVP ONE ×2 (11:05→11:45)
--- NOTE | 2017-08-10 12:01 | RADIOLOGY IMAGING REPORT ---
FACILITY: [facility] - [place] PATIENT NAME: Darell Haddad : 1955 MR: [id number] V: [id number] EXAM DATE: ORDERING PHYSICIAN: MANN MURILLO TECHNOLOGIST: Location: [facility] [place] Patient: Darell Haddad : 1955 Visit/Account:[id number] Date of Sevice: 08/10/2017 ABDOMEN/PELVIS WITH CONTRAST HISTORY: History of pneumonia, right lower quadrant pain TECHNIQUE: Following administration of IV contrast contiguous axial images acquired through the abdom en/pelvis. Coronal and sagittal reformatting also performed. Dose Lowering Technique One of the following dose optimization techniques was utilized in the performance of this exam: Autom ated exposure control; adjustment of the mA and/or kV according to the patient's size; or use of an i terative reconstruction technique. Specific details can be referenced in the facility's radiology C T exam operational policy. CONTRAST: 75 mL Isovue-370 COMPARISON: None. FINDINGS: Visualized lung bases: There are moderate bilateral posterior layering pleural effusions and airspac e consolidation in the dependent portion of both lower lobes, right greater than left consistent with compressive atelectasis and or developing infiltrates. Hepatobiliary: There is a 1.5 cm hypoattenuating lesion in the dome of the right lobe the liver. CT Hounsfield units of 10 suggest this is not a simple cyst. There are smaller hypoattenuating lesions within the liver that are too small to characterize. Spleen: Negative. Adrenals: Negative. Pancreas: Negative. Kidneys ureters or bladder: There are several subcentimeter hypoattenuating lesions in the left kidne y that are too small to characterize. The bladder wall appears moderately thickened. The bladder do me enhances with contrast Genitalia: Negative. GI: The appendix appears diffusely thickened and enhances measuring 1 cm in diameter. The terminal ileum appears mildly dilated small bowel feces suggesting stasis. There is extensive abdominal and p elvic ascites present and numerous omental and peritoneal implants. This combination of findings is suspicious for an appendiceal malignancy with metastases. There are multiple nodular densities in th e left upper quadrant of abdomen which may represent additional implants. There are multiple enhanci ng lymph nodes in the right lower quadrant. A counter sales representative lymph node measures 1.2 x 0.7 cm there is a 1.4 x 0.6 cm external iliac lymph node on the right . There are bilateral iliac lymph nodes an d multiple retroperitoneal lymph nodes.. A 1.8 x 1.4 cm aortocaval lymph node just above the iliac b ifurcation... Incidentally noted is a moderate amount of fluid in the gastric fundus and lower esophagus. The wall of the gastric antrum and gastric body is also appears diffusely thickened. Vessels/spaces/nodes: As above Bones/soft tissues: There is a small right inguinal hernia containing fat Additional findings: None pertinent. IMPRESSION: There is a large amount of abdominal and pelvic ascites present and numerous omental and peritoneal i mplants. The appendix is diffusely enhancing and thickened measuring up to 1 cm in diameter. There are multiple retroperitoneal lymph nodes and mesenteric lymph nodes the right lower quadrant. These changes are concerning for an appendiceal malignancy.. Also noted however is diffuse thickening of t he wall of the gastric body and antrum moderate fluid distention of the gastric fundus and dilated di stal esophagus. Gastric malignancy is also included in the differential diagnosis. The bladder wall is moderately thickened with enhancement of the bladder dome. Cystoscopy may be hel pful 1.5 cm hypoattenuating lesion in the dome of the liver with CT Hounsfield units of 10 suggests a simp le cyst. There are moderate bilateral posterior layering pleural effusions and airspace consolidation in the d ependent portion of both lower lobes, right greater than left consistent with compressive atelecta is and or developing infiltrates. Results were called to MANN MURILLO at 08/10/2017 11:54 AM. Report Dictated By: Lisa Anguiano MD at 08/10/2017 11:33 AMReport E-Signed By: Estephanie Jerez at 08/10/2017 11:57 AM WSN:[email or web address]
[2017-08-10] MEDS ORDERED: KCL (*) 20 MEQ/100 ML PREMIX 100 ML IV ONE ×3 (12:15→20:00)
[2017-08-10] MEDS ORDERED: HYDROmorphone(ER ONLY) 1 MG/ML IVP ONE (12:15)
[2017-08-10] MEDS ORDERED: LORazepam 2 MG/ML VIAL IVP ONE (12:15)
[2017-08-10 14:54] VITALS: BP 108/77
[2017-08-10] MEDS ORDERED: NS(*) 0.9% 1000 ML BAG 1,000 ML IV PRN (15:06)
--- NOTE | 2017-08-10 16:25 | History & Physical ---
History of Present Illness Chief Complaint Abdominal pain History of Present Illness 62yo male with PMHx significant for expressive aphasia, upper extremity weakness following childhood polio. He was recently admitted with a suspected aspiration episode. He has been having increasing RLQ discomfort with some associated nausea/emesis. He has also been rather constipated recently as well. He denies any dysuria/frequency. He has not appreciated any fevers or chills. He was evaluated in the ER and found to have significant abdominal ascites and right pleural effusion. The CT also showed changes concerning for possible appendiceal and/or gastric malignancy. He was recommended for admission. History Problems: (1) Expressive aphasia Status: Chronic (2) History of poliomyelitis Status: Chronic (3) RUE weakness Status: Chronic (4) Pneumonia Status: Acute Home Meds Active Scripts Potassium Chloride (KLOR-CON) 20 Meq Packet, 20 MEQ PO QDAY, #30 PACKET Prov:SPRING DEVLIN 08/09/17 Amoxicillin/Pot Clav 600-42.9 Mg/5 Ml Susp (AMOX TR-K CLV 600-42.9/5 SUSP) 600 Mg/5 Ml Susp.recon, 7 ML PO BID for 6 Days, #1 ML Prov:SPRING DEVLIN 08/09/17 Reported Medications Cholecalciferol (Vitamin D3) (VITAMIN D3) 1,000 Unit Tablet, 1000 UNIT PO, TAB every Mon08/07/17 Ibuprofen (IBUPROFEN) 200 Mg Tablet, 1 TAB PO TID Y for PAIN, TAB 08/07/17 Acetaminophen (TYLENOL) 325 Mg Tablet, 500 MG PO BID, TAB 08/07/17 Allergies: Coded Allergies: No Known Drug Allergies (Unverified , 08/10/17) Patient History: Patient reports no known family medical history. Hx Smoking: Yes Smoking Status: Former Smoker Hx Alcohol Use: Yes Alcohol Used: Beer, Liquor Hx Substance Use Disorder: No Review of Systems Constitutional: No Fever, No Chills, No Night Sweats Neurological: Weakness, No Syncope Eyes: No Vision Change, No Loss of Vision ENT: Sore Throat Cardiovascular: No Chest Pain, No Palpitations Respiratory: Cough, No Shortness of Breath Gastrointestinal: Nausea, Vomiting, No Diarrhea, Constipation, No Hematemesis, No Hematochezia, No Melena, Abdominal Pain Genitourinary: No Dysuria, No Hematuria Musculoskeletal: Pain Exam Vital Signs Vital Signs Date Time Temp Pulse Resp B/P (MAP) Pulse Ox O2 Delivery O2 Flow Rate FiO2 08/10/17 15:03 94 Nasal Cannula 4.0 08/10/17 14:54 98.4 93 18 108/77 (87) General Appearance: Alert, Awake, Other (expressive aphasia, but does communicate well using yes no questions with head nods or shakes) Neuro: Other (diffuse atrophy with some weakness in RUE/less in LUE with some contracture noted) ENT: Oropharynx Clear (no lesions seen) Neck: No Masses Cardiovascular: Regular Rate and Rhythm Respiratory: Other (diminished breath sounds at right base) Chest: No Tenderness GI: Other (slightly distended/tenderness reported right lower quadrant/ diminished bowel sounds) : Other (some right CVA area tenderness) Musculoskeletal: Other (diffuse atrophy) Extremities: Warm, Perfused Medical Decision Making Data Points Result Diagram: 08/10/17 1020 08/10/17 1020 Item Value Date Time Lipase 198 U/L 08/10/17 1020 Albumin 2.9 g/dl L 08/10/17 1020 Total Protein 6.0 gm/dl L 08/10/17 1020 Alkaline Phosphatase 88 U/L 08/10/17 1020 Alanine Aminotransferase (ALT/SGPT) 37 U/L 08/10/17 1020 Aspartate Amino Transf (AST/SGOT) 36 U/L H 08/10/17 1020 Total Bilirubin 0.6 mg/dl 08/10/17 1020 Calcium Level 8.4 mg/dl 08/10/17 1020 Urine Color Trena 08/10/17 1118 Urine Clarity Cloudy 08/10/17 1118 Urine pH 5.0 pH 08/10/17 1118 Urine Specific [place] 1.031 08/10/17 1118 Urine Protein 30 mg/dL 08/10/17 1118 Urine Glucose (UA) Negative mg/dL 08/10/17 1118 Urine Ketones Trace mg/dL 08/10/17 1118 Urine Blood Negative 08/10/17 1118 Urine Nitrite Negative 08/10/17 1118 Urine Bilirubin Small 08/10/17 1118 Urine Urobilinogen 4.0 mg/dL H 08/10/17 1118 Urine Leukocyte Esterase Negative 08/10/17 1118 Urine RBC 3 /HPF 08/10/17 1118 Urine WBC 7 /HPF 08/10/17 1118 Urine Squamous Epithelial Cells Few /LPF 08/10/17 1118 Urine Bacteria Negative /HPF 08/10/17 1118 Urine Hyaline Casts Few /LPF 08/10/17 1118 Urine Mucus Few /HPF 08/10/17 1118 Helicobacter pylori IgG Antibody Positive 08/10/17 1020 Group A Streptococcus Screen Negative 08/08/17 0003 Influenza Virus Type B (PCR) Negative 08/07/17 1045 Influenza Virus Type A (PCR) Negative 08/07/17 1045 EKG / Imaging Imaging PATIENT NAME: Darell Haddad : 1955 MR: [id number] V: [id number] EXAM DATE: ORDERING PHYSICIAN: MANN MURILLO TECHNOLOGIST: Location: [facility] Patient: Darell Haddad : 1955 Visit/Account:[id number] Date of Sevice: 08/10/2017 ABDOMEN/PELVIS WITH CONTRAST HISTORY: History of pneumonia, right lower quadrant pain TECHNIQUE: Following administration of IV contrast contiguous axial images acquired through the abdomen/pelvis. Coronal and sagittal reformatting also performed. Dose Lowering Technique One of the following dose optimization techniques was utilized in the performance of this exam: Automated exposure control; adjustment of the mA and/ or kV according to the patient's size; or use of an iterative reconstruction technique. Specific details can be referenced in the facility's radiology CT exam operational policy. CONTRAST: 75 mL Isovue-370 COMPARISON: None. FINDINGS: Visualized lung bases: There are moderate bilateral posterior layering pleural effusions and airspace consolidation in the dependent portion of both lower lobes, right greater than left consistent with compressive atelectasis and or developing infiltrates. Hepatobiliary: There is a 1.5 cm hypoattenuating lesion in the dome of the right lobe the liver. CT Hounsfield units of 10 suggest this is not a simple cyst. There are smaller hypoattenuating lesions within the liver that are too small to characterize. Spleen: Negative. Adrenals: Negative. Pancreas: Negative. Kidneys ureters or bladder: There are several subcentimeter hypoattenuating lesions in the left kidney that are too small to characterize. The bladder wall appears moderately thickened. The bladder dome enhances with contrast Genitalia: Negative. GI: The appendix appears diffusely thickened and enhances measuring 1 cm in diameter. The terminal ileum appears mildly dilated small bowel feces suggesting stasis. There is extensive abdominal and pelvic ascites present and numerous omental and peritoneal implants. This combination of findings is suspicious for an appendiceal malignancy with metastases. There are multiple nodular densities in the left upper quadrant of abdomen which may represent additional implants. There are multiple enhancing lymph nodes in the right lower quadrant. A sales representative girls' apparel lymph node measures 1.2 x 0.7 cm there is a 1.4 x 0.6 cm external iliac lymph node on the right . There are bilateral iliac lymph nodes and multiple retroperitoneal lymph nodes.. A 1.8 x 1.4 cm aortocaval lymph node just above the iliac bifurcation... Incidentally noted is a moderate amount of fluid in the gastric fundus and lower esophagus. The wall of the gastric antrum and gastric body is also appears diffusely thickened. Vessels/spaces/nodes: As above Bones/soft tissues: There is a small right inguinal hernia containing fat Additional findings: None pertinent. IMPRESSION: There is a large amount of abdominal and pelvic ascites present and numerous omental and peritoneal implants. The appendix is diffusely enhancing and thickened measuring up to 1 cm in diameter. There are multiple retroperitoneal lymph nodes and mesenteric lymph nodes the right lower quadrant. These changes are concerning for an appendiceal malignancy.. Also noted however is diffuse thickening of the wall of the gastric body and antrum moderate fluid distention of the gastric fundus and dilated distal esophagus. Gastric malignancy is also included in the differential diagnosis. The bladder wall is moderately thickened with enhancement of the bladder dome. Cystoscopy may be helpful 1.5 cm hypoattenuating lesion in the dome of the liver with CT Hounsfield units of 10 suggests a simple cyst. There are moderate bilateral posterior layering pleural effusions and airspace consolidation in the dependent portion of both lower lobes, right greater than left consistent with compressive atelecta is and or developing infiltrates. Results were called to MANN MURILLO at 08/10/2017 11:54 AM. Report Dictated By: Lisa Anguiano MD at 08/10/2017 11:33 AMReport E-Signed By : Lisa Anguiano MD at 08/10/2017 11:57 AM WSN:[email or web address] Assessment and Plan Problems: (1) Ascites Status: Acute Assessment & Plan: Unknown etiology, but very concerning for possible malignant etiology. I discussed situation with the patient and his brother. They both seem to understand fairly well. I also discussed paracentesis and they are agreeable. Will have Dr. Mckeon see for paracentesis (and possible thoracentesis). Will evaluate fluid. Further work-up and treatment pending results. (2) Pleural effusion Status: Acute Assessment & Plan: See above. It is most likely related to the same process ( vs. possibility of infection related). (3) Hypokalemia Status: Acute Assessment & Plan: Will replace with IV supplementation. Watch labs. (4) History of poliomyelitis Status: Chronic Assessment & Plan: With resulting expressive aphasia and moderate extremity weakness. He is currently residing at [facility]. Venous Thromboembolism Antithrombotics Is Pt On Any Antithrombotics?: No (upcoming surgical procdures) Exam Sepsis Risk: No Definite Risk CLARITZA ZACARIAS MD Aug 10, 2017 16:25
--- NOTE | 2017-08-10 20:15 | General Surgery Consultation ---
History of Present Illness Requesting Physician Dr. Alma Mathur, Hospitalist Service Reason for Consult Pleural effusions, ascites Chief Complaint Abdominal pain History of Present Illness 62yo mentally handicapped male is brought in to the ER with abdominal pain x1 day. He was admitted to the Hospitalist Service several days ago with pneumonia and was d/crescencio back to [facility] yesterday but then he developed abdominal pain. CT chest, abdomen and pelvis reveals bilateral pleural effusions, right much bigger than left, large ascites, thickened gastric wall, thickened appendix , and peritoneal/omental studding, suspicious for widely disseminated neoplasm. The patient is aphasic and unable to provide any history but he is able to point to where he is having pain, mainly in his right abdomen. His family (2 brothers) are present and indicate that he was born "normal" but he received the polio vaccine at 5 years old and "had a bad reaction to it" resulting in his current mental condition and aphasia. History Problems: (1) RUE weakness Status: Chronic (2) Expressive aphasia Status: Chronic (3) History of poliomyelitis Status: Chronic Home Meds Active Scripts Potassium Chloride (KLOR-CON) 20 Meq Packet, 20 MEQ PO QDAY, #30 PACKET Prov:SPRING DEVLIN DO 08/09/17 Amoxicillin/Pot Clav 600-42.9 Mg/5 Ml Susp (AMOX TR-K CLV 600-42.9/5 SUSP) 600 Mg/5 Ml Susp.recon, 7 ML PO BID for 6 Days, #1 ML Prov:SPRING DEVLIN DO 08/09/17 Reported Medications Cholecalciferol (Vitamin D3) (VITAMIN D3) 1,000 Unit Tablet, 1000 UNIT PO, TAB every Mon08/07/17 Ibuprofen (IBUPROFEN) 200 Mg Tablet, 1 TAB PO TID Y for PAIN, TAB 08/07/17 Acetaminophen (TYLENOL) 325 Mg Tablet, 500 MG PO BID, TAB 08/07/17 Allergies: Coded Allergies: No Known Drug Allergies (Unverified , 08/10/17) Family History: Patient reports no known family medical history. Review of Systems All Systems Reviewed/Normal: Yes, Except as Noted Gastrointestinal: Abdominal Pain Exam Vital Signs Vital Signs Date Time Temp Pulse Resp B/P (MAP) Pulse Ox O2 Delivery O2 Flow Rate FiO2 08/10/17 15:03 94 Nasal Cannula 4.0 08/10/17 14:54 98.4 93 18 108/77 (87) General Appearance: Alert, Awake, No Acute Distress, Afebrile Respiratory: Other (Decreased BS in bilateral bases, right greater than left) GI: Other (Soft, distended, dull to percussion with fluid wave) Extremities: Warm, Perfused Medical Decision Making Data Points Result Diagram: 08/10/17 1020 08/10/17 1020 Assessment and Plan Problems: (1) Ascites Status: Acute Assessment & Plan: 08/10/17: Suspect ascites and pleural effusions are malignant. Right thoracentesis and pericentesis completed without problems and fluid sent to lab for testing, including cytology. Pt tolerated the procedures without issues. Will need further w/u to confirm diagnosis of cancer including possibly EGD and colonoscopy. Will await for results of pleural and ascitic fluid cytology. (2) Pleural effusion Status: Acute Condition Guarded Time Spent: < 30 min Venous Thromboembolism Antithrombotics Is Pt On Any Antithrombotics?: No (upcoming surgical procdures) Problem Qualifiers (1) Ascites: Ascites type: other type Qualified Codes: R18.8 - Other ascites SPRING AWAN MD Aug 10, 2017 20:15
--- NOTE | 2017-08-10 20:16 | Procedure Note ---
Paracentesis Procedure Note Reason for Paracentesis: Ascites Consent Signed: Yes Paracentesis Location: Other U/S Guided Paracentesis: No Blood Loss: Minimal Complications: None Anesthesia Used: 1% Lidocaine CC's of Anesthesia: 2 Amount of Fluid - cc's: 3000 Fluid Characteristics: Serous Lab Analysis Ordered: Yes Thoracentesis Procedure Note Reason for Thoracentesis: Pleural Effusion Consent Signed: Yes Thoracentesis Location: Right Lung U/S Guided Thoracentesis: No Blood Loss: Minimal Complications: None Anesthesia Used: 1% Lidocaine CC's of Anesthesia: 3 Amount of Fluid: 1000 Fluid Characteristics: Serous Post Procedure Xray Ordered: Yes Lab Analysis Ordered: Yes SPRING AWAN MD Aug 10, 2017 20:16
--- NOTE | 2017-08-10 20:31 | RADIOLOGY IMAGING REPORT ---
FACILITY: [facility] - [place] PATIENT NAME: Darell Haddad : 1955 MR: [id number] V: [id number] EXAM DATE: ORDERING PHYSICIAN: SPRING AWAN TECHNOLOGIST: Location: [facility] [place] Patient: Darell Haddad : 1955 Visit/Account:[id number] Date of Sevice: 08/10/2017 CHEST SINGLE AP 08/10/2017 20:02 hours. HISTORY: Status post right thoracentesis. COMPARISON: CT of the abdomen and pelvis earlier same day. Acute abdominal series including chest x-r ay from 08/07/2017. TECHNIQUE: Portable AP view of the chest. FINDINGS: Tubes/lines/hardware: None. Pulmonary: Small right pleural effusion has decreased in size. No pneumothorax. There is a small left pleural effusion, unchanged. There has been improvement in the right basilar opacity, likely resolvi ng atelectasis. There is diffuse interstitial prominence. Cardiomediastinal: Cardiac and mediastinal silhouettes are within normal limits. Bones/soft tissues: No acute osseous abnormality. There is mild degenerative change of the spine. The visible abdomen is normal. IMPRESSION: 1. Small right pleural effusion has decreased in size. There has been improvement in the adjacent con solidation, likely improving atelectasis. 2. Small left pleural effusion is unchanged. 3. Diffuse interstitial prominence has developed and may be due to pulmonary edema. Atypical pneumoni a could cause a similar appearance. Report Dictated By: Luba Rahman at 08/10/2017 8:24 PM Report E-Signed By: Luba Rahman at 08/10/2017 8:27 PM WSN:[id number]
[2017-08-10 20:57] VITALS: BP 109/80
[2017-08-10 22:28] VITALS: BP 100/66
[2017-08-11 03:15] VITALS: BP 100/71
[2017-08-11 06:01] LABS: PLATELET COUNT, AUTOMATED 264 K/uL (150-450)
--- NOTE | 2017-08-11 06:53 | RADIOLOGY IMAGING REPORT ---
FACILITY: [facility] [place] PATIENT NAME: Darell Haddad : 1955 MR: [id number] V: [id number] EXAM DATE: ORDERING PHYSICIAN: SPRING AWAN TECHNOLOGIST: Location: [facility] Patient: Darell Haddad : 1955 Visit/Account:[id number] Date of Sevice: 08/11/2017 PORTABLE CHEST: Indication: Pleural effusions. Technique: A single frontal film was obtained. Comparison: 08/10/2017 Skeletal and soft tissue structures: Stable. Heart and mediastinum: Stable. Lung dsouza: There is a persistent pulmonary edema pattern. No new focal parenchymal opacities are id entified. Pleural spaces: Persistent small effusions. No evidence of pneumothorax. Impression: No significant change. Report Dictated By: Jorge A Farmer MD at 08/11/2017 6:48 AM Report E-Signed By: Jorge A Farmer MD at 08/11/2017 6:49 AM WSN:[id number]
[2017-08-11 07:42] VITALS: BP 95/76
--- NOTE | 2017-08-11 08:25 | General Surgery Progress Note ---
Subjective Progress Notes Subjective No complaints today. Abdominal pain is better. Physical Exam Vital Signs Date Time Temp Pulse Resp B/P (MAP) Pulse Ox O2 Delivery O2 Flow Rate FiO2 08/11/17 07:42 97.0 100 18 95/76 (82) 89 Nasal Cannula 2.0 General Appearance: Alert, Awake, No Acute Distress, Afebrile GI: Other (Soft, mild TTP on right, no peritoneal signs.) Extremities: Warm, Perfused Result Diagram: 08/11/17 0530 08/11/17 0530 Assessment and Plan Problems: (1) Ascites Status: Acute Assessment & Plan: 08/10/17: Suspect ascites and pleural effusions are malignant. Right thoracentesis and pericentesis completed without problems and fluid sent to lab for testing, including cytology. Pt tolerated the procedures without issues. Will need further w/u to confirm diagnosis of cancer including possibly EGD and colonoscopy. Will await for results of pleural and ascitic fluid cytology. 08/11/17: Doing better since pericentesis and right thoracentesis. Awaiting results. Can be d/crescencio whenever cleared by hospitalist service and I'll continue w/u as outpatient. Likely needs EGD/colonoscopy, and PET/CT to look for source of likely neoplasm. (2) Pleural effusion Status: Acute Condition Stable. Time Spent: < 30 min Exam Sepsis Risk: No Definite Risk Problem Qualifiers (1) Ascites: Ascites type: other type Qualified Codes: R18.8 - Other ascites SPRING AWAN MD Aug 11, 2017 08:25
[2017-08-11] MEDS ORDERED: AMOX/CLAV 400 MG/5 ML 50ML BTL PO SCH (09:00)
--- NOTE | 2017-08-11 09:35 | Hospitalist Depart ---
Discharge Summary Reason for Hosp/Final Diag: (1) Ascites Status: Acute Hospital Course & Plan: He was found to have ascites and other intraabdominal findings consistent with malignancy. Dr. Awan performed a paracentesis and this fluid has been sent to pathology for interpretation. He will follow up with Dr. Awan next week. (2) Pleural effusion Status: Acute Hospital Course & Plan: He was also found to have a pleural effusion. Samples from his thoracentesis were also sent for analysis. (3) Hypokalemia Status: Acute Hospital Course & Plan: He will discharge on potassium supplements. Departure Latest Vital Signs Vital Signs 08/11/17 07:42 Temp 97.0 Pulse 100 Resp 18 B/P (MAP) 95/76 (82) Pulse Ox 89 O2 Delivery Nasal Cannula O2 Flow Rate 2.0 Weight (Pounds): 115 Weight (Ounces): 6.0 Result Diagram: 08/11/1752908/11/1730 Condition: Improved Discharge: Jail PT/OT Follow Up For: PT Evaluation and Treat Discharge Instructions Home Meds Active Scripts Potassium Chloride (KLOR-CON) 20 Meq Packet, 20 MEQ PO QDAY, #30 PACKET Prov:QUITASPRING ZUÑIGA DO 08/09/17 Amoxicillin/Pot Clav 600-42.9 Mg/5 Ml Susp (AMOX TR-K CLV 600-42.9/5 SUSP) 600 Mg/5 Ml Susp.recon, 7 ML PO BID for 6 Days, #1 ML Prov:QUITASPRING ZUÑIGA DO 08/09/17 Reported Medications Cholecalciferol (Vitamin D3) (VITAMIN D3) 1,000 Unit Tablet, 1000 UNIT PO, TAB every Mon08/07/17 Ibuprofen (IBUPROFEN) 200 Mg Tablet, 1 TAB PO TID Y for PAIN, TAB 08/07/17 Acetaminophen (TYLENOL) 325 Mg Tablet, 500 MG PO BID, TAB 08/07/17 Diet: Regular Activity: As Tolerated Copies to: SPRING AWAN MD Venous Thromboembolism Antithrombotics Is Pt On Any Antithrombotics?: No (upcoming surgical procdures) Problem Qualifiers (1) Ascites: Ascites type: other type Qualified Codes: R18.8 - Other ascites QUITASPRING DO Aug 11, 2017 09:35
[2017-08-13] MEDS ORDERED: INFLUENZA VIRUS VAC 0.5 ML SYR IM ONLY ONE (09:00)
== END 2017-08-11 13:05 | DRG 844 ==
LOC: ER 10:21 → MED 14:13
PROVIDERS: ADMIT Internal Medicine; ATTEND Internal Medicine
PROC: 0W9G3ZX Drainage of Peritoneal Cavity, Percutaneous Approach, Diagnostic (ICD-10-PCS; principal; 2017-08-10)
PROC: 0W993ZX Drainage of Right Pleural Cavity, Percutaneous Approach, Diagnostic (ICD-10-PCS; 2017-08-10)
DX: C80.0 Disseminated malignant neoplasm, unspecified (principal); R18.0 Malignant ascites; J91.0 Malignant pleural effusion; E87.6 Hypokalemia; R53.1 Weakness; F79 Unspecified intellectual disabilities; Z86.12 Personal history of poliomyelitis; I69.320 Aphasia following cerebral infarction
CPT/HCPCS: 36415; 71045; 74177; 81001; 82040; 82247; 82310; 82374; 82435; 82565; 82945; 82947; 83690; 83735; 83986; 84075; 84132; 84155; 84157; 84295; 84450; 84460; 84520; 85025; 86677; 87071; 87205; 88305; 89050; 96365; 96366; 96375; 99285; C9113; J1170; J1885; J2060; J3010; J3480; J7030; Q9967

== ENCOUNTER 2017-08-14 16:15 | Inpatient (IN) | payer MEDICARE, MEDICAID ==
[2017-08-08 09:00] VITALS: Wt 51.3 kg
--- NOTE | 2017-08-14 17:28 | ER Report ---
History and Physical Time Seen By MD: 17:26 HPI/ROS CHIEF COMPLAINT: Shortness of breath HISTORY OF PRESENT ILLNESS: This is a 62-year-old male who presents to the emergency department from the [facility] for increased shortness of breath, pitting edema in the lower extremities and abdominal pain. Patient is a resident of the [facility], the patient was here recently for abdominal pain, and shortness of breath. Patient did have a thoracentesis which resolved some of his shortness of breath. Patient was subsequently discharged back to the [facility]. According to the staff at [facility] patient has had increased shortness of breath, increased abd pain and pitting edema in the lower extremities. The patient did have a "biopsy on the right abd" approximately 3 days ago. The patient does not appear to be in distress at this time. Family at bedside. According to the patient he has had some loose stools and decreased urinary output. Patient denies aches, chills, nausea, vomiting. The site to the right upper abdomen still has a bandage over it looks intact, no purulent drainage or erythema. REVIEW OF SYSTEMS: Constitutional: As above. Eyes: No discharge. ENT: No sore throat. Cardiovascular: No chest pain, no palpitations. Respiratory: As above. Gastrointestinal: As above. Genitourinary: As above. Musculoskeletal: No back pain. Skin: No rashes. Neurological: No headache. Allergies: Coded Allergies: No Known Drug Allergies (Unverified , 08/10/17) Home Meds Active Scripts Potassium Chloride (KLOR-CON) 20 Meq Packet, 20 MEQ PO QDAY, #30 PACKET Prov:SPRING DEVLIN DO 08/09/17 Amoxicillin/Pot Clav 600-42.9 Mg/5 Ml Susp (AMOX TR-K CLV 600-42.9/5 SUSP) 600 Mg/5 Ml Susp.recon, 7 ML PO BID for 6 Days, #1 ML Prov:SPRING DEVLIN DO 08/09/17 Reported Medications Cholecalciferol (Vitamin D3) (VITAMIN D3) 1,000 Unit Tablet, 1000 UNIT PO, TAB every Mon08/07/17 Ibuprofen (IBUPROFEN) 200 Mg Tablet, 1 TAB PO TID Y for PAIN, TAB 08/07/17 Acetaminophen (TYLENOL) 325 Mg Tablet, 500 MG PO BID, TAB 08/07/17 Past Medical/Surgical History Patient has a past medical and surgical history of rhabdomyolysis, abdominal pain, stomach and duodenal pain, pleural effusions, pneumonitis, hypokalemia, aphasia, aphonia, 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 Reviewed Nurses Notes: Yes Hx Smoking: Yes Smoking Status: Former Smoker Hx Alcohol Use: Yes Constitutional Vital Sign - Last 24 Hours 08/14/17 08/14/17 08/14/17 08/14/17 17:24 17:30 17:33 17:38 Pulse 108 120 Resp 20 B/P (MAP) 128/83 (98) 128/83 118/86 (97) Pulse Ox 93 93 O2 Delivery Nasal Cannula 08/14/17 08/14/17 17:45 18:00 Pulse 109 103 Resp 18 25 B/P (MAP) 127/89 (102) Pulse Ox 93 95 Intake and Output 08/14/17 08/14/17 08/15/17 15:00 23:00 07:00 Output Total 50 ml Balance -50 ml Physical Exam General Appearance: The patient is alert, has no immediate need for airway protection and no signs of toxicity. Eyes: Pupils equal and round no pallor or injection. ENT, Mouth: Mucous membranes are dry, geographic tongue. Respiratory: There are no retractions, lungs are diminished throughout almost absent on the right side. Cardiovascular: Regular rate and rhythm, distant, no murmurs, clicks or rubs. Gastrointestinal: Abdomen is firm and diffusely tender, however increased pain to the right side, no masses, hypoactive bowel sounds. Neurological: Alert and oriented, at baseline. Moving all extremities. Following all commands. No focal neuro deficits. Skin: Warm and dry, no rashes. No ecchymosis. No jaundice. Musculoskeletal: Neck is supple non tender. Extremities 2+ pitting edema to the lower extremities, up to the tibial plateau. DIFFERENTIAL DIAGNOSIS: After history and physical exam differential diagnosis was considered for abdominal pain including but not limited to appendicitis, cholecystitis, gastritis and urinary tract infection.shortness of breath including but not limited to pulmonary infectious process, COPD, asthma, pulmonary embolus and congestive heart failure. Medical Decision Making Data Points Result Diagram: 08/14/17181608/14/171816 Laboratory Hematology Test 08/14/17 00:00 08/14/17 18:17 08/14/17 19:33 Troponin I 0.026 ng/ml Red Blood Count 4.91 M/uL (4.00-5.60) Mean Corpuscular Volume 90.1 fL (80.0-96.0) Mean Corpuscular Hemoglobin 30.7 pg (26.0-33.0) Mean Corpuscular Hemoglobin Concent 34.1 g/dL (32.0-36.0) Red Cell Distribution Width 13.4 % (11.5-14.5) Mean Platelet Volume 7.2 fL (7.2-11.1) Neutrophils (%) (Auto) 85.7 % (39.4-72.5) Lymphocytes (%) (Auto) 5.3 % (17.6-49.6) Monocytes (%) (Auto) 6.2 % (4.1-12.4) Eosinophils (%) (Auto) 1.5 % (0.4-6.7) Basophils (%) (Auto) 1.3 % (0.3-1.4) Nucleated RBC Relative Count (auto) 0.0 /100WBC Neutrophils # (Auto) 9.2 K/uL (2.0-7.4) Lymphocytes # (Auto) 0.6 K/uL (1.3-3.6) Monocytes # (Auto) 0.7 K/uL (0.3-1.0) Eosinophils # (Auto) 0.2 K/uL (0.0-0.5) Basophils # (Auto) 0.1 K/uL (0.0-0.1) Nucleated RBC Absolute Count (auto) 0.00 K/uL Prothrombin Time 14.5 seconds (12.0-14.4) Prothromb Time International Ratio 1.12 Activated Partial Thromboplast Time 26 seconds (23-35) Sodium Level 132 mmol/L (137-145) Potassium Level 3.7 mmol/L (3.5-5.0) Chloride Level 91 mmol/L (98-107) Carbon Dioxide Level 34 mmol/L (22-30) Blood Urea Nitrogen 13 mg/dl (9-21) Creatinine 0.70 mg/dl (0.66-1.25) Glomerular Filtration Rate Calc > 60.0 Random Glucose 111 mg/dl (75-110) Calcium Level 8.2 mg/dl (8.4-10.2) Total Bilirubin 0.4 mg/dl (0.2-1.3) Aspartate Amino Transf (AST/SGOT) 44 U/L (0-35) Alanine Aminotransferase (ALT/SGPT) 44 U/L (0-56) Alkaline Phosphatase 78 U/L (0-126) Total Protein 5.3 gm/dl (6.3-8.2) Albumin 2.5 g/dl (3.5-5.0) Amylase Level 63 U/L (0-110) Lipase 119 U/L (23-300) Urine Color Yellow Urine Clarity Slightly-cloudy Urine pH 5.0 pH (4.8-9.5) Urine Specific [place] 1.050 Urine Protein Negative mg/dL (NEGATIVE) Urine Glucose (UA) Negative mg/dL (NEGATIVE) Urine Ketones Trace mg/dL (NEGATIVE) Urine Blood Negative (NEGATIVE) Urine Nitrite Negative (NEGATIVE) Urine Bilirubin Negative (NEGATIVE) Urine Urobilinogen 2.0 mg/dL (0.2-1.9) Urine Leukocyte Esterase Negative (NEGATIVE) Urine RBC 1 /HPF (0-2/HPF) Urine WBC 2 /HPF (0-5/HPF) Urine Squamous Epithelial Cells Few /LPF (</=FEW) Urine Bacteria Negative /HPF (NONE-FEW) Urine Mucus Few /HPF (NONE-FEW) Chemistry Test 08/14/17 00:00 08/14/17 18:17 08/14/17 19:33 Troponin I 0.026 ng/ml White Blood Count 10.8 k/uL (4.5-11.0) Red Blood Count 4.91 M/uL (4.00-5.60) Hemoglobin 15.1 g/dL (14.0-18.0) Hematocrit 44.3 % (42.0-52.0) Mean Corpuscular Volume 90.1 fL (80.0-96.0) Mean Corpuscular Hemoglobin 30.7 pg (26.0-33.0) Mean Corpuscular Hemoglobin Concent 34.1 g/dL (32.0-36.0) Red Cell Distribution Width 13.4 % (11.5-14.5) Platelet Count 305 K/uL (150-450) Mean Platelet Volume 7.2 fL (7.2-11.1) Neutrophils (%) (Auto) 85.7 % (39.4-72.5) Lymphocytes (%) (Auto) 5.3 % (17.6-49.6) Monocytes (%) (Auto) 6.2 % (4.1-12.4) Eosinophils (%) (Auto) 1.5 % (0.4-6.7) Basophils (%) (Auto) 1.3 % (0.3-1.4) Nucleated RBC Relative Count (auto) 0.0 /100WBC Neutrophils # (Auto) 9.2 K/uL (2.0-7.4) Lymphocytes # (Auto) 0.6 K/uL (1.3-3.6) Monocytes # (Auto) 0.7 K/uL (0.3-1.0) Eosinophils # (Auto) 0.2 K/uL (0.0-0.5) Basophils # (Auto) 0.1 K/uL (0.0-0.1) Nucleated RBC Absolute Count (auto) 0.00 K/uL Prothrombin Time 14.5 seconds (12.0-14.4) Prothromb Time International Ratio 1.12 Activated Partial Thromboplast Time 26 seconds (23-35) Glomerular Filtration Rate Calc > 60.0 Calcium Level 8.2 mg/dl (8.4-10.2) Total Bilirubin 0.4 mg/dl (0.2-1.3) Aspartate Amino Transf (AST/SGOT) 44 U/L (0-35) Alanine Aminotransferase (ALT/SGPT) 44 U/L (0-56) Alkaline Phosphatase 78 U/L (0-126) Total Protein 5.3 gm/dl (6.3-8.2) Albumin 2.5 g/dl (3.5-5.0) Amylase Level 63 U/L (0-110) Lipase 119 U/L (23-300) Urine Color Yellow Urine Clarity Slightly-cloudy Urine pH 5.0 pH (4.8-9.5) Urine Specific [place] 1.050 Urine Protein Negative mg/dL (NEGATIVE) Urine Glucose (UA) Negative mg/dL (NEGATIVE) Urine Ketones Trace mg/dL (NEGATIVE) Urine Blood Negative (NEGATIVE) Urine Nitrite Negative (NEGATIVE) Urine Bilirubin Negative (NEGATIVE) Urine Urobilinogen 2.0 mg/dL (0.2-1.9) Urine Leukocyte Esterase Negative (NEGATIVE) Urine RBC 1 /HPF (0-2/HPF) Urine WBC 2 /HPF (0-5/HPF) Urine Squamous Epithelial Cells Few /LPF (</=FEW) Urine Bacteria Negative /HPF (NONE-FEW) Urine Mucus Few /HPF (NONE-FEW) Coagulation Test 08/14/17 18:17 Prothrombin Time 14.5 seconds Prothromb Time International Ratio 1.12 Activated Partial Thromboplast Time 26 seconds Urinalysis Test 08/14/17 19:33 Urine Color Yellow Urine Clarity Slightly-cloudy Urine pH 5.0 pH (4.8-9.5) Urine Specific [place] 1.050 Urine Protein Negative mg/dL (NEGATIVE) Urine Glucose (UA) Negative mg/dL (NEGATIVE) Urine Ketones Trace mg/dL (NEGATIVE) Urine Blood Negative (NEGATIVE) Urine Nitrite Negative (NEGATIVE) Urine Bilirubin Negative (NEGATIVE) Urine Urobilinogen 2.0 mg/dL (0.2-1.9) Urine Leukocyte Esterase Negative (NEGATIVE) Urine RBC 1 /HPF (0-2/HPF) Urine WBC 2 /HPF (0-5/HPF) Urine Squamous Epithelial Cells Few /LPF (</=FEW) Urine Bacteria Negative /HPF (NONE-FEW) Urine Mucus Few /HPF (NONE-FEW) EKG/Imaging EKG Interpretation 12 lead EKG: Time of EKG 2030. Rhythm: Normal sinus rhythm, ventricular rate 99 bpm. [place]: Right bundle branch block. QRS: normal ST segments: Inverted T waves in V1, V2, V3 flat T in V4. This is slightly different from the 08/08/2017 EKG most notably in the V2 and V3 , with more ST depression in the older EKG. This was reviewed with Dr. Bernard and Dr. Dunbar. Imaging EXAMINATION: CT chest, abdomen, and pelvis with IV contrast HISTORY: Shortness of breath. Abdominal pain. TECHNIQUE: Axial CT images of the chest, abdomen, and pelvis were obtained with IV contrast, with coronal and sagittal 2D reconstructed images. One of the following dose optimization techniques was utilized in the performance of this exam: Automated exposure control; adjustment of the mA and/ or kV according to the patient's size; or use of an iterative reconstruction technique. Specific details can be referenced in the facility's radiology CT exam operational policy. Contrast: 75 mL of IV Isovue-370. COMPARISON: CT abdomen/pelvis 08/10/2017. FINDINGS: Chest: Lungs and pleura: Moderate bilateral layering pleural effusions, similar to the prior exam. There is adjacent compressive atelectasis in the lung bases. There are some mild patchy foci of groundglass opacity in the aerated portions of the lower lungs with some tree-in-bud type opacities, which may be infectious or inflammatory. The central airways are patent. No pneumothorax. Mediastinum and brown: The esophagus is moderately distended with intraluminal fluid and air. No focal esophageal mass by CT. Heart, aorta, and great vessels: Normal caliber thoracic aorta. Normal heart size. No pericardial effusion. Chest lymph node assessment: No discrete enlarged lymph nodes in the chest. Bones: Negative. Chest wall: Negative. Lower neck: Nonspecific 0.9 cm hypodense nodule in the left thyroid lobe. Abdomen/pelvis: Liver: There are multiple small hypodense lesions in the liver, measuring up to 1.3 cm along the dome of the right hepatic lobe, too small to definitively characterize. Gallbladder and bile ducts: Negative. Spleen: Negative. Pancreas: Negative. Adrenal glands: Negative. Kidneys: Negative. No hydronephrosis or urinary calculi. Bowel and peritoneum: Again noted are changes compatible with diffuse peritoneal carcinomatosis. There is a moderate volume of abdominal ascites with diffuse peritoneal enhancement. There is omental caking with ill-defined soft tissue attenuation along the greater omentum. The stomach is moderately distended with fluid. There is mild diffuse wall thickening and enhancement of the stomach and proximal duodenum. Small bowel loops are normal in caliber. There is wall thickening along the terminal ileum as well as mild diffuse wall thickening of the entire colon, similar to the prior exam. Again noted is mild enlargement and increased enhancement of the appendix, measuring up to 10 mm, potentially representing a primary source of malignancy but nonspecific. No bowel obstruction. No free intraperitoneal air. Pelvic structures: The urinary bladder is relatively decompressed. There is some persistent nonspecific wall thickening along the bladder dome. Lymph node assessment: There are several soft tissue nodules along the gastrosplenic ligament measuring up to 1.1 cm which may represent pathologic lymph nodes or additional peritoneal implants. There are mildly enlarged mesenteric lymph nodes in the right lower abdomen, measuring up to 1.4 x 0.8 cm. Enlarged retroperitoneal lymph nodes measure up to 1.7 x 1.0 cm along the right paraaortic level. Vessels: The abdominal aorta is patent and normal in caliber. The IVC is narrowed but appears patent. The hepatic veins, portal veins, and portal tributaries are patent. Musculoskeletal: No acute osseous findings or suspicious focal osseous lesions. Body wall: Small right inguinal hernia containing fat and ascites fluid. IMPRESSION: 1. There are changes in the abdomen and pelvis compatible with diffuse peritoneal malignancy, without significant change from t e prior exam of 4 days ago. Moderate volume of abdominal ascites with diffuse peritoneal enhancement and omental activity.2. Primary source of malignancy is not definitively defined. This could be arising from the appendix which is mildly enlarged and enhancing. Stomach may also be a potential source of malignancy, with some diffuse wall thickening and enhancement. The esophagus is moderately distended with fluid. 3. There is wall thickening of the terminal ileum and cecum with additional mild wall thickening of the entire colon which is nonspecific. This could relate to peritoneal implants along the serosal surface of the bowel or an underlying primary malignancy at the terminal ileum or cecum where the wall thickening is slightly more prominent. A superimposed ileocolitis is not excluded. 4. Moderate bilateral layering pleural effusions appear stable with adjacent atelectasis in the lung bases. There is some mild patchy groundglass opacity in the lower lungs with some tree-in-bud type opacities, which may be infectious or inflammatory. 5. Mildly enlarged abdominal lymph nodes again noted, suspicious for metastatic involvement. 6. Small hypodense lesions in the liver are poorly characterize and indeterminate. 7. 0.9 cm left thyroid nodule. Report Dictated By: Jr Zavaleta MD at 08/14/2017 7:15 PM Report E-Signed By: Jr Zavaleta MD at 08/14/2017 7:41 PM WSN:[id number] ED Course/Re-evaluation Clinical Indication for ER IV: IV Access ED Course The patient was admitted to room. A history physical were obtained. Differential diagnoses were considered. An IV was started. A CBC, CMP Anticoagulation studies were obtained. There were no significant changes in the CBC and CMP from the previous studies. After the H&P and evaluation of the patient and discussion with the family we elected to go ahead and proceed with a chest abdomen and pelvis CT. results of the chest abdomen pelvis CT showing changes in the abdomen pelvis compatible with diffuse peritoneal malignancy without significant changes from the prior study about 4 days ago. Moderate volume abdominal ascites concerns that the appendix or stomach could be a source of the malignancy. The esophagus is moderately distended with fluid. Wall thickening of the terminal ileum and cecum with thickening along the entire colon. Moderate bilateral pleural effusions with atelectasis in the lung bases. Some groundglass opacities in the lower lungs which may indicate an infectious process which she is beach being treated for pneumonia. Moderately enlarged abdominal lymph nodes. These were reviewed with the patient however the medication with the patient is difficult the family is not in the room at this time. Dr. Delgado did come down and evaluate the patient and his talking to the family about the admission. EKG showing a right bundle branch block with inverted T waves in V1 and V2 and V3 and flattened T waves in V4. Dr. Delgado has elected to keep the patient in the hospital with a possible surgical consult. Patient also had an episode of vomiting in the emergency department he was given 4 mg IV Zofran. 08/14/2017 8:10:33 pm I did speak with Dr. Hanley regarding the patient's case and he said that he'll be happy to consult with the hospitalist regarding the patient's care and possibly perform another thoracentesis if needed. However it would be an admission to the hospitalist and suggested talking to Dr. Delgado. 08/14/2017 8:33:[address] Delgado who is going to see the patient and talked to the family about a possible admission and how aggressive they would like to be with his care. Decision to Disposition Date: Aug 14, 2017 Decision to Disposition Time: 20:45 Depart Departure Latest Vital Signs Vital Signs Date Time Temp Pulse Resp B/P (MAP) Pulse Ox O2 Delivery O2 Flow Rate FiO2 08/14/17 18:00 103 25 127/89 (102) 95 08/14/17 17:33 Nasal Cannula Impression: Primary Impression: Ascites Additional Impression: Pleural effusion Condition: Condition Unchanged Disposition: Admitted from ER Referrals: STEPHANIE MALLOY MD (PCP) Problem Qualifiers Primary Impression: Ascites Ascites type: malignant Qualified Codes: R18.0 - Malignant ascites PEBBLES LEBLANC SKEIN BANDER-BC Aug 14, 2017 17:28
[2017-08-14] MEDS ORDERED: IOPAMIDOL 76% 75 ML INFUS BTL 75 ML ONE (18:21)
[2017-08-14] MEDS ORDERED: NS 0.9% 150 ML BAG 150 ML ONE (18:22)
[2017-08-14 18:26] LABS: PLATELET COUNT, AUTOMATED 305 K/uL (150-450)
[2017-08-14 18:40] LABS: INR 1.12
--- NOTE | 2017-08-14 19:46 | RADIOLOGY IMAGING REPORT ---
FACILITY: [facility] PATIENT NAME: Darell Haddad : 1955 MR: [id number] V: [id number] EXAM DATE: ORDERING PHYSICIAN: PEBBLES LEBLANC TECHNOLOGIST: Location: [facility] Patient: Darell Haddad : 1955 Visit/Account:[id number] Date of Sevice: 08/14/2017 EXAMINATION: CT chest, abdomen, and pelvis with IV contrast HISTORY: Shortness of breath. Abdominal pain. TECHNIQUE: Axial CT images of the chest, abdomen, and pelvis were obtained with IV contrast, with c oronal and sagittal 2D reconstructed images. One of the following dose optimization techniques was utilized in the performance of this exam: Autom ated exposure control; adjustment of the mA and/or kV according to the patient's size; or use of an i terative reconstruction technique. Specific details can be referenced in the facility's radiology C T exam operational policy. Contrast: 75 mL of IV Isovue-370. COMPARISON: CT abdomen/pelvis 08/10/2017. FINDINGS: Chest: Lungs and pleura: Moderate bilateral layering pleural effusions, similar to the prior exam. There is adjacent compressive atelectasis in the lung bases. There are some mild patchy foci of groundglass o pacity in the aerated portions of the lower lungs with some tree-in-bud type opacities, which may be infectious or inflammatory. The central airways are patent. No pneumothorax. Mediastinum and brown: The esophagus is moderately distended with intraluminal fluid and air. No foca l esophageal mass by CT. Heart, aorta, and great vessels: Normal caliber thoracic aorta. Normal heart size. No pericardial ef fusion. Chest lymph node assessment: No discrete enlarged lymph nodes in the chest. Bones: Negative. Chest wall: Negative. Lower neck: Nonspecific 0.9 cm hypodense nodule in the left thyroid lobe. Abdomen/pelvis: Liver: There are multiple small hypodense lesions in the liver, measuring up to 1.3 cm along the dom e of the right hepatic lobe, too small to definitively characterize. Gallbladder and bile ducts: Negative. Spleen: Negative. Pancreas: Negative. Adrenal glands: Negative. Kidneys: Negative. No hydronephrosis or urinary calculi. Bowel and peritoneum: Again noted are changes compatible with diffuse peritoneal carcinomatosis. The re is a moderate volume of abdominal ascites with diffuse peritoneal enhancement. There is omental ca sheryl with ill-defined soft tissue attenuation along the greater omentum. The stomach is moderately distended with fluid. There is mild diffuse wall thickening and enhancement of the stomach and proximal duodenum. Small bowel loops are normal in caliber. There is wall thicken ing along the terminal ileum as well as mild diffuse wall thickening of the entire colon, similar to the prior exam. Again noted is mild enlargement and increased enhancement of the appendix, measuring up to 10 mm, potentially representing a primary source of malignancy but nonspecific. No bowel obstru ction. No free intraperitoneal air. Pelvic structures: The urinary bladder is relatively decompressed. There is some persistent nonsp ecific wall thickening along the bladder dome. Lymph node assessment: There are several soft tissue nodules along the gastrosplenic ligament measur ing up to 1.1 cm which may represent pathologic lymph nodes or additional peritoneal implants. There are mildly enlarged mesenteric lymph nodes in the right lower abdomen, measuring up to 1.4 x 0.8 cm. Enlarged retroperitoneal lymph nodes measure up to 1.7 x 1.0 cm along the right paraaortic level. Vessels: The abdominal aorta is patent and normal in caliber. The IVC is narrowed but appears patent . The hepatic veins, portal veins, and portal tributaries are patent. Musculoskeletal: No acute osseous findings or suspicious focal osseous lesions. Body wall: Small right inguinal hernia containing fat and ascites fluid. IMPRESSION: 1. There are changes in the abdomen and pelvis compatible with diffuse peritoneal malignancy, without significant change from t e prior exam of 4 days ago. Moderate volume of abdominal ascites with diff use peritoneal enhancement and omental activity.2. Primary source of malignancy is not definitively d efined. This could be arising from the appendix which is mildly enlarged and enhancing. Stomach may a lso be a potential source of malignancy, with some diffuse wall thickening and enhancement. The esoph felisa is moderately distended with fluid. 3. There is wall thickening of the terminal ileum and cecum with additional mild wall thickening of t he entire colon which is nonspecific. This could relate to peritoneal implants along the serosal surf saadia of the bowel or an underlying primary malignancy at the terminal ileum or cecum where the wall th ickening is slightly more prominent. A superimposed ileocolitis is not excluded. 4. Moderate bilateral layering pleural effusions appear stable with adjacent atelectasis in the lung bases. There is some mild patchy groundglass opacity in the lower lungs with some tree-in-bud type op acities, which may be infectious or inflammatory. 5. Mildly enlarged abdominal lymph nodes again noted, suspicious for metastatic involvement. 6. Small hypodense lesions in the liver are poorly characterize and indeterminate. 7. 0.9 cm left thyroid nodule. Report Dictated By: Jr Zavaleta MD at 08/14/2017 7:15 PM Report E-Signed By: Jr Zavaleta MD at 08/14/2017 7:41 PM WSN:[id number]
[2017-08-14] MEDS ORDERED: ONDANSETRON 4 MG/2 ML VIAL IVP ONE (20:15)
--- NOTE | 2017-08-14 21:06 | EKG ---
FACILITY: [facility] PATIENT NAME: DARIEN JACOBS : [id number] MR: [id number] V: [id number] EXAM DATE: ORDERING PHYSICIAN: PEBBLES LEBLANC TECHNOLOGIST: BAILEY Test Reason : SOB Blood Pressure : / mmHG Vent. Rate : 099 BPM Atrial Rate : 099 BPM P-R Int : 134 ms QRS Dur : 128 ms QT Int : 366 ms P-R-T Axes : 072 234 058 degrees QTc Int : 469 ms Normal sinus rhythm Right bundle branch block Possible Inferior infarct (cited on or before 14-AUG-2017) Abnormal ECG When compared with ECG of 08-AUG-2017 01:15, Relatively unchanged Confirmed by IDRIS PINEDA ([id number]) on 08/14/2017 11:00:52 PM Referred By: Confirmed By:IDRIS PINEDA
[2017-08-14 22:00] VITALS: BP 125/77
[2017-08-14] MEDS ORDERED: FUROSEMIDE 20 MG/2 ML VIAL IVP ONE (22:15)
[2017-08-14] MEDS ORDERED: MORPHINE 2 MG/ML SYR IVP PRN (22:15)
[2017-08-14] MEDS ORDERED: ACETAMINOPHEN(*)1000 MG/100 ML 100 ML IVPB PRN (22:15)
[2017-08-14] MEDS ORDERED: ONDANSETRON 4 MG/2 ML VIAL IVP PRN (22:15)
--- NOTE | 2017-08-14 22:47 | History & Physical ---
History of Present Illness History of Present Illness 62yo male with expressive aphasia, UE weakness following childhood polio and recent diagnosis of ascites and bilateral pleural effusions who was brought to the ER for LE edema, SOB, abdominal pain and nausea. He was in the hospital from 08/08 to 08/09 for concern of an aspiration pneumonia. He was then admitted for ascites and bilateral pleural effusions from 08/10 to 08/11. He had 3 liters removed from the abdomen and 1 liter from the right lung on 08/10. There was concern for malignancy of unknown primary and the workup was going to proceed as an outpatient. However, since discharge he has developed LE edema, worsening SOB, abdominal pain and nausea. In the ER, he received Zofran. History Problems: (1) Pleural effusion Status: Acute (2) Ascites Status: Acute (3) History of poliomyelitis Status: Chronic (4) Expressive aphasia Status: Chronic Home Meds Active Scripts Potassium Chloride (KLOR-CON) 20 Meq Packet, 20 MEQ PO QDAY, #30 PACKET Prov:QUITASPRING DO 08/09/17 Amoxicillin/Pot Clav 600-42.9 Mg/5 Ml Susp (AMOX TR-K CLV 600-42.9/5 SUSP) 600 Mg/5 Ml Susp.recon, 7 ML PO BID for 6 Days, #1 ML Prov:QUITASPRING DO 08/09/17 Reported Medications Cholecalciferol (Vitamin D3) (VITAMIN D3) 1,000 Unit Tablet, 1000 UNIT PO, TAB every Mon08/07/17 Ibuprofen (IBUPROFEN) 200 Mg Tablet, 1 TAB PO TID Y for PAIN, TAB 08/07/17 Acetaminophen (TYLENOL) 325 Mg Tablet, 500 MG PO BID, TAB 08/07/17 Allergies: Coded Allergies: No Known Drug Allergies (Unverified , 08/10/17) Patient History: Patient reports no known family medical history. Other Social/Family Hx Lives at [facility]. Hx Smoking: Yes Smoking Status: Former Smoker Hx Alcohol Use: Yes Hx Substance Use Disorder: No Review of Systems All Systems Reviewed/Normal: Yes, Except as Noted Exam Vital Signs Vital Signs Date Time Temp Pulse Resp B/P (MAP) Pulse Ox O2 Delivery O2 Flow Rate FiO2 08/14/17 22:00 98.1 97 20 125/77 (93) 92 Nasal Cannula 3.0 General Appearance: Alert, Awake, No Acute Distress Neuro: Other (He has an aphasia. Nods head to answer questions. ) Cardiovascular: Regular Rate and Rhythm Respiratory: Clear to Auscultation GI: Abd Soft and Non-Tender Extremities: Edema (1-2+ pitting) Medical Decision Making Data Points Result Diagram: 08/14/17181608/14/171816 EKG / Imaging Imaging Chest/abd/pelvis CT - 1. There are changes in the abdomen and pelvis compatible with diffuse peritoneal malignancy, without significant change from t e prior exam of 4 days ago. Moderate volume of abdominal ascites with diffuse peritoneal enhancement and omental activity.2. Primary source of malignancy is not definitively defined. This could be arising from the appendix which is mildly enlarged and enhancing. Stomach may also be a potential source of malignancy, with some diffuse wall thickening and enhancement. The esophagus is moderately distended with fluid. 3. There is wall thickening of the terminal ileum and cecum with additional mild wall thickening of the entire colon which is nonspecific. This could relate to peritoneal implants along the serosal surface of the bowel or an underlying primary malignancy at the terminal ileum or cecum where the wall thickening is slightly more prominent. A superimposed ileocolitis is not excluded. 4. Moderate bilateral layering pleural effusions appear stable with adjacent atelectasis in the lung bases. There is some mild patchy groundglass opacity in the lower lungs with some tree-in-bud type opacities, which may be infectious or inflammatory. 5. Mildly enlarged abdominal lymph nodes again noted, suspicious for metastatic involvement. 6. Small hypodense lesions in the liver are poorly characterize and indeterminate. 7. 0.9 cm left thyroid nodule. Assessment and Plan Problems: (1) Ascites Status: Acute Assessment & Plan: By CT, the ascitic fluid that had 3 liters removed on 08/10 has returned. Cytology from 08/10 shows atypia. Based on CT findings of abd/ pelvis, it is very likely that the patient has a widely metastatic cancer that is progressing quickly. After discussion with the patient's medical POA (Augustine ), he wants to meet with Dr. Mckeon tomorrow to discuss the possible work up options. Will try a dose of Lasix tonight. Check a BNP in the morning. Will treat the nausea and abdominal pain symptomatically. No paracentesis at this time. (2) Pleural effusion Status: Acute Assessment & Plan: He presented with increased SOB. By CT, the pleural effusion on the right that had a liter removed on 08/10 has returned. Cytology from 08/10 shows atypia. He is currently comfortable. Will not do a thoracentesis at this time. (3) Expressive aphasia Status: Chronic Assessment & Plan: He was seen by ST on a previous admission who recommended dysphagia 2 with nectar thickened liquids. He will be NPO for now. Venous Thromboembolism Antithrombotics Is Pt On Any Antithrombotics?: No Exam Sepsis Risk: No Definite Risk Problem Qualifiers (1) Ascites: Ascites type: malignant Qualified Codes: R18.0 - Malignant ascites IDRIS PINEDA MD Aug 14, 2017 22:47
[2017-08-15 02:17] VITALS: BP 119/79
[2017-08-15] MEDS: PROMETHAZINE 25 MG/ML 1 ML AMP IVP PRN ×3 (03:12→20:13)
[2017-08-15 07:00] VITALS: BP 107/72
[2017-08-15 07:10] LABS: PLATELET COUNT, AUTOMATED 261 K/uL (150-450)
--- NOTE | 2017-08-15 08:51 | General Surgery Consultation ---
History of Present Illness Requesting Physician Dr. 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 I performed paracentesis and right thoracentesis on him and he was discharged back to the [facility]. He has developed worsening abdominal pain and nausea and so came back to the emergency room yesterday where he was admitted to the hospitalist service. This morning he reports that he is not in any pain and he denies any nausea or vomiting to the extent that I can tell as he is nonverbal due to aphasia. His neurologic deficits all stem from polio as a child. History Problems: (1) RUE weakness Status: Chronic (2) Expressive aphasia Status: Chronic (3) History of poliomyelitis Status: Chronic Home Meds Active Scripts Potassium Chloride (KLOR-CON) 20 Meq Packet, 20 MEQ PO QDAY, #30 PACKET Prov:SPRING DEVLIN 08/09/17 Amoxicillin/Pot Clav 600-42.9 Mg/5 Ml Susp (AMOX TR-K CLV 600-42.9/5 SUSP) 600 Mg/5 Ml Susp.recon, 7 ML PO BID for 6 Days, #1 ML Prov:SPRING DEVLIN 08/09/17 Reported Medications Cholecalciferol (Vitamin D3) (VITAMIN D3) 1,000 Unit Tablet, 1000 UNIT PO, TAB every Mon08/07/17 Ibuprofen (IBUPROFEN) 200 Mg Tablet, 1 TAB PO TID Y for PAIN, TAB 08/07/17 Acetaminophen (TYLENOL) 325 Mg Tablet, 500 MG PO BID, TAB 08/07/17 Allergies: Coded Allergies: No Known Drug Allergies (Unverified , 08/10/17) Family History: Patient reports no known family medical history. Review of Systems All Systems Reviewed/Normal: Yes, Except as Noted Gastrointestinal: Nausea, Vomiting, Abdominal Pain Exam Vital Signs Vital Signs Date Time Temp Pulse Resp B/P (MAP) Pulse Ox O2 Delivery O2 Flow Rate FiO2 08/15/17 07:00 98.1 97 20 107/72 (84) 95 Nasal Cannula 08/15/17 03:19 2.0 General Appearance: Alert, Awake, No Acute Distress, Afebrile GI: Other (soft, mildly distended and dull to percussion, diffuse tenderness to palpation, no peritoneal signs.) Extremities: Warm, Perfused Medical Decision Making Data Points Result Diagram: 08/15/17 0658 08/15/17 0658 Assessment and Plan Problems: (1) Metastatic cancer Status: Chronic Assessment & Plan: 08/15/17: I sat down with the patient's family today, 2 brothers and a nephew are present, and discussed the patient's dire condition. I have explained that his cancer has progressed even when compared to a CT scan from last week prior to the paracentesis and thoracentesis. I have explained that this cancer, whatever type, is incurable due to its wide spread nature. The most likely sites of origin are stomach, colon, or appendix. Even if we could figure out the primary site of the cancer, the family is very concerned that the patient is not going to tolerate any sort of chemotherapy due to his chronic comorbidities and compromised state. After this discussion, the patient' s family would like to make him comfort care. They do not wish to proceed with any further aggressive diagnostic or therapeutic measures and they would like to focus all future efforts on keeping him comfortable and prevent suffering. (2) Cancer with unknown primary site Status: Chronic Condition Terminal Time Spent: < 30 min Venous Thromboembolism Antithrombotics Is Pt On Any Antithrombotics?: No SPRING AWAN MD Aug 15, 2017 08:50
[2017-08-15] MEDS ORDERED: ENOXAPARIN 40 MG/0.4ML SYR SC SCH (09:00)
[2017-08-15] MEDS ORDERED: SCOPOLAMINE 1.5 MG PATCH TD PRN (11:50)
[2017-08-15] MEDS ORDERED: LORazepam 2 MG/ML VIAL IV PRN (11:50)
--- NOTE | 2017-08-15 15:53 | Hospitalist Progress Note ---
Subjective Progress Notes Subjective The patient's family has elected to transition him to comfort care. Physical Exam Vital Signs Date Time Temp Pulse Resp B/P (MAP) Pulse Ox O2 Delivery O2 Flow Rate FiO2 08/15/17 09:22 Nasal Cannula 2.0 08/15/17 07:00 98.1 97 20 107/72 (84) 95 Intake and Output 08/16/17 07:00 # Bowel Movements 2 General Appearance: Alert, Awake, No Acute Distress Neuro: Other (The patient has aphasia but can nod yes or no and can use his iPad to communicate as well.) Eyes: PERRLA Cardiovascular: Regular Rate and Rhythm Respiratory: Other (Rhonchi bilaterally.) GI: Other (Tender midabdomen with firmness noted. No rebound.) Extremities: Warm, Perfused, Other (No edema.) Integumentary: Skin Intact without Lesion / Mass Result Diagram: 08/15/1765708/15/17657 Assessment and Plan Problems: (1) Ascites Status: Acute Assessment & Plan: By CT, the ascitic fluid (3 liters) removed on 08/10 has returned. Cytology from 08/10 shows atypia. Based on CT findings of abd/pelvis , it is very likely that the patient has a widely metastatic cancer that is progressing quickly. Dr. Mckeon had a discussion with the patient's medical POA (Augustine), and the family has elected to transition the patient to comfort care. He would not be a good candidate for aggressive treatment. (2) Pleural effusion Status: Acute Assessment & Plan: He presented with increased SOB. By CT, the pleural effusion on the right that had a liter removed on 08/10 has returned. Cytology from 08/10 shows atypia. He is currently comfortable. Will not do a thoracentesis at this time. (3) Expressive aphasia Status: Chronic Assessment & Plan: He was seen by ST on a previous admission who recommended dysphagia 2 with nectar thickened liquids. He will be NPO for now. Time Spent on Plan of Care: < 30 min Exam Sepsis Risk: No Definite Risk Problem Qualifiers (1) Ascites: Ascites type: malignant Qualified Codes: R18.0 - Malignant ascites GUILLERMINA ZACARIAS MD Aug 15, 2017 15:53
[2017-08-16] MEDS: PROMETHAZINE 25 MG/ML 1 ML AMP IVP PRN ×2 (05:33→16:29)
--- NOTE | 2017-08-16 10:39 | Hospitalist Progress Note ---
Subjective Progress Notes Subjective He answer yes/no questions with either nods/shakes or thumbs up/down. He denies abdominal pain or nausea this AM. Physical Exam Vital Signs Date Time Temp Pulse Resp B/P (MAP) Pulse Ox O2 Delivery O2 Flow Rate FiO2 08/16/17 07:33 91 Nasal Cannula 2.0 08/15/17 07:00 98.1 97 20 107/72 (84) General Appearance: Alert, Awake Cardiovascular: Regular Rate and Rhythm Respiratory: Other (diminished breath sounds at bases) GI: Other (slightly distended/fairly soft/diminished BS) Extremities: Warm, Perfused, Edema Result Diagram: 08/15/1765708/15/17657 Assessment and Plan Problems: (1) Ascites Status: Acute Assessment & Plan: On CT, the ascites removed on 08/10 has now returned. Cytology from 08/10 shows atypia. Based on CT findings of abd/pelvis, it is very likely that the patient has a widely metastatic cancer that is progressing quickly. The patient and and family have elected to transition the patient to comfort care. Will continue to work on symptom control and transfer to SNF when feasible. (2) Pleural effusion Status: Acute Assessment & Plan: He presented with increased SOB. By CT, the pleural effusion on the right that had a liter removed on 08/10 has returned. Cytology from 08/10 shows atypia. He is currently comfortable. Will not do a thoracentesis at this time. (3) Expressive aphasia Status: Chronic Assessment & Plan: He was seen by ST on a previous admission who recommended dysphagia 2 with nectar thickened liquids. Exam Sepsis Risk: No Definite Risk Problem Qualifiers (1) Ascites: Ascites type: malignant Qualified Codes: R18.0 - Malignant ascites CLARITZA ZACARIAS MD Aug 16, 2017 10:39
--- NOTE | 2017-08-17 08:53 | Hospitalist Depart ---
Discharge Summary Reason for Hosp/Final Diag: (1) Ascites Status: Acute Hospital Course & Plan: Patient's CT showed ascites that was removed on 08/10 returned. Cytology showed atypia. Based on the CT findings of abd/pelvis, it is very likely that the patient has a widely metastatic cancer that is progressing quickly. The patient and and family have elected to transition the patient to comfort care. Will continue to work on symptom control and transfer to ECF today. (2) Pleural effusion Status: Acute Hospital Course & Plan: He presented with increased SOB. By CT, the pleural effusion on the right that had a liter removed on 08/10 has returned. Cytology from 08/10 shows atypia. He is currently comfortable. Will not do a thoracentesis, as family has elected comfort care. (3) Expressive aphasia Status: Chronic Hospital Course & Plan: He was seen by ST on a previous admission who recommended dysphagia 2 with nectar thickened liquids. Departure Latest Vital Signs Vital Signs 08/15/17 08/16/17 08/16/17 07:00 07:33 21:10 Temp 98.1 Pulse 97 Resp 20 B/P (MAP) 107/72 (84) Pulse Ox 91 O2 Delivery Nasal Cannula O2 Flow Rate 2.0 Weight (Pounds): 113 Weight (Ounces): 1.0 Result Diagram: 08/15/1765708/15/17657 Condition: No Change Discharge: [facility] Discharge Code Status: DNR, DNI Discharge Instructions Home Meds Active Scripts Potassium Chloride (KLOR-CON) 20 Meq Packet, 20 MEQ PO QDAY, #30 PACKET Prov:SPRING DEVLIN DO 08/09/17 Amoxicillin/Pot Clav 600-42.9 Mg/5 Ml Susp (AMOX TR-K CLV 600-42.9/5 SUSP) 600 Mg/5 Ml Susp.recon, 7 ML PO BID for 6 Days, #1 ML Prov:SPRING DEVLIN DO 08/09/17 Reported Medications Cholecalciferol (Vitamin D3) (VITAMIN D3) 1,000 Unit Tablet, 1000 UNIT PO, TAB every Mon08/07/17 Ibuprofen (IBUPROFEN) 200 Mg Tablet, 1 TAB PO TID Y for PAIN, TAB 08/07/17 Acetaminophen (TYLENOL) 325 Mg Tablet, 500 MG PO BID, TAB 08/07/17 Diet: Regular Activity: As Tolerated Copies to: STEPHANIE MALLOY MD Venous Thromboembolism Antithrombotics Is Pt On Any Antithrombotics?: No Problem Qualifiers (1) Ascites: Ascites type: malignant Qualified Codes: R18.0 - Malignant ascites BOAZ JAIMES DURABLE MEDICAL EQUIPMENT REPAIRER Aug 17, 2017 08:53
[2017-08-18] MEDS ORDERED: PATCH REMOVAL 1 EA TP PRN (09:00)
== END 2017-08-17 11:44 | DRG 844 ==
LOC: ER 16:16 → MED 21:01
PROVIDERS: ADMIT Internal Medicine; ATTEND Internal Medicine
DX: C80.0 Disseminated malignant neoplasm, unspecified (principal); R18.0 Malignant ascites; R47.01 Aphasia; J91.0 Malignant pleural effusion; F79 Unspecified intellectual disabilities; Z87.891 Personal history of nicotine dependence; Z86.12 Personal history of poliomyelitis; Z51.5 Encounter for palliative care
CPT/HCPCS: 36415; 71260; 74177; 81001; 82040; 82150; 82247; 82310; 82374; 82435; 82565; 82947; 83605; 83690; 83880; 84075; 84132; 84155; 84295; 84450; 84460; 84484; 84520; 85025; 85610; 85730; 93005; 96374; 99285; J1650; J1940; J2270; J2405; J2550; Q9967

== ENCOUNTER 2017-08-17 12:00 | Inpatient (IN) | payer MEDICARE, MEDICAID ==
[2017-08-08 09:00] VITALS: Ht 170.2 cm; Wt 49.9 kg
[~2017-08-17] VITALS: Ht 170.2 cm; Wt 49.9 kg
[2017-08-17 12:28] VITALS: BP 112/66
[2017-08-17] MEDS ORDERED: FLUSH 10 ML SYR IV PRN (12:55)
[2017-08-17] MEDS ORDERED: LORazepam 2 MG/ML VIAL IV PRN (12:58)
[2017-08-17] MEDS ORDERED: SCOPOLAMINE 1.5 MG PATCH TD PRN (12:58)
--- NOTE | 2017-08-17 13:48 | ECF H&P BLANK ---
[facility] H&P UPDATE History of Present Illness History of Present Illness 62yo male with expressive aphasia, UE weakness following childhood polio and recent diagnosis of ascites and bilateral pleural effusions who was brought to the ER for LE edema, SOB, abdominal pain and nausea. He was in the hospital from 08/08 to 08/09 for concern of an aspiration pneumonia. He was then admitted for ascites and bilateral pleural effusions from 08/10 to 08/11. He had 3 liters removed from the abdomen and 1 liter from the right lung on 08/10. There was concern for malignancy of unknown primary and the workup was going to proceed as an outpatient. However, since discharge he has developed LE edema, worsening SOB, abdominal pain and nausea. In the ER, he received Zofran. History Problems: (1) Pleural effusion Status: Acute (2) Ascites Status: Acute (3) History of poliomyelitis Status: Chronic (4) Expressive aphasia Status: Chronic Home Meds Active Scripts Potassium Chloride (KLOR-CON) 20 Meq Packet, 20 MEQ PO QDAY, #30 PACKET Prov:QUITASPRING 08/09/17 Amoxicillin/Pot Clav 600-42.9 Mg/5 Ml Susp (AMOX TR-K CLV 600-42.9/5 SUSP) 600 Mg/5 Ml Susp.recon, 7 ML PO BID for 6 Days, #1 ML Prov:SPRING DEVLIN 08/09/17 Reported Medications Cholecalciferol (Vitamin D3) (VITAMIN D3) 1,000 Unit Tablet, 1000 UNIT PO, TAB every Mon08/07/17 Ibuprofen (IBUPROFEN) 200 Mg Tablet, 1 TAB PO TID Y for PAIN, TAB 08/07/17 Acetaminophen (TYLENOL) 325 Mg Tablet, 500 MG PO BID, TAB 08/07/17 Allergies: Coded Allergies: No Known Drug Allergies (Unverified , 08/10/17) Patient History: Patient reports no known family medical history. Other Social/Family Hx Lives at [facility]. Hx Smoking: Yes Smoking Status: Former Smoker Hx Alcohol Use: Yes Hx Substance Use Disorder: No Review of Systems All Systems Reviewed/Normal: Yes, Except as Noted Exam Vital Signs Vital Signs Date Time Temp Pulse Resp B/P (MAP) Pulse Ox O2 Delivery O2 Flow Rate FiO2 08/14/17 22:00 98.1 97 20 125/77 (93) 92 Nasal Cannula 3.0 General Appearance: Alert, Awake, No Acute Distress Neuro: Other (He has an aphasia. Nods head to answer questions. ) Cardiovascular: Regular Rate and Rhythm Respiratory: Clear to Auscultation GI: Abd Soft and Non-Tender Extremities: Edema (1-2+ pitting) Medical Decision Making Data Points Result Diagram: 08/14/17181608/14/171816 EKG / Imaging Imaging Chest/abd/pelvis CT - 1. There are changes in the abdomen and pelvis compatible with diffuse peritoneal malignancy, without significant change from t e prior exam of 4 days ago. Moderate volume of abdominal ascites with diffuse peritoneal enhancement and omental activity.2. Primary source of malignancy is not definitively defined. This could be arising from the appendix which is mildly enlarged and enhancing. Stomach may also be a potential source of malignancy, with some diffuse wall thickening and enhancement. The esophagus is moderately distended with fluid. 3. There is wall thickening of the terminal ileum and cecum with additional mild wall thickening of the entire colon which is nonspecific. This could relate to peritoneal implants along the serosal surface of the bowel or an underlying primary malignancy at the terminal ileum or cecum where the wall thickening is slightly more prominent. A superimposed ileocolitis is not excluded. 4. Moderate bilateral layering pleural effusions appear stable with adjacent atelectasis in the lung bases. There is some mild patchy groundglass opacity in the lower lungs with some tree-in-bud type opacities, which may be infectious or inflammatory. 5. Mildly enlarged abdominal lymph nodes again noted, suspicious for metastatic involvement. 6. Small hypodense lesions in the liver are poorly characterize and indeterminate. 7. 0.9 cm left thyroid nodule. Assessment and Plan Problems: (1) Ascites Status: Acute Assessment & Plan: By CT, the ascitic fluid that had 3 liters removed on 08/10 has returned. Cytology from 08/10 shows atypia. Based on CT findings of abd/ pelvis, it is very likely that the patient has a widely metastatic cancer that is progressing quickly. After discussion with the patient's medical POA (Augustine ), he wants to meet with Dr. Mckeon tomorrow to discuss the possible work up options. Will try a dose of Lasix tonight. Check a BNP in the morning. Will treat the nausea and abdominal pain symptomatically. No paracentesis at this time. (2) Pleural effusion Status: Acute Assessment & Plan: He presented with increased SOB. By CT, the pleural effusion on the right that had a liter removed on 08/10 has returned. Cytology from 08/10 shows atypia. He is currently comfortable. Will not do a thoracentesis at this time. (3) Expressive aphasia Status: Chronic Assessment & Plan: He was seen by ST on a previous admission who recommended dysphagia 2 with nectar thickened liquids. He will be NPO for now. Venous Thromboembolism Antithrombotics Is Pt On Any Antithrombotics?: No Exam Sepsis Risk: No Definite Risk Problem Qualifiers (1) Ascites: Ascites type: malignant Qualified Codes: R18.0 - Malignant ascites IDRIS PINEDA MD Aug 14, 2017 22:47 <Electronically signed by IDRIS PINEDA MD> D/ 46 46 46 PETELARS/LP CC: Patient requires jail for End of Life Care/Comfort Care and is ready for admission to Extended Care. Any change in condition is described below. SPRING DEVLIN DO Aug 17, 2017 13:48
[2017-08-17] MEDS: MORPHINE 2 MG/ML SYR IVP PRN (21:14)
[2017-08-18] MEDS: MORPHINE 2 MG/ML SYR IVP PRN ×4 (07:02→17:30)
[2017-08-18] MEDS ORDERED: SCOPOLAMINE 1.5 MG PATCH TD PRN (09:00)
--- NOTE | 2017-08-18 13:34 | Medical Nutrition Therapy ---
Nutrition Anthropometrics Height (Inches): 67.00 Height (Calculated Centimeters: 170.546516 Weight (Pounds): 110 Weight (Calculated Kilograms): 50.037 BMI Calculated: 16.44 Griffin Nutrition Score: Probably Inadequate Griffin Nutrition Risk Score: 16 Dietary Referral Nutrition Risk Factors: Unplanned Loss >10lbs Nutrition Risk Comment: aspiration pneumonia Physical Findings Physical Appearance: Underweight BMI<19 Skin Appearance Skin Appearance: Edema Edema Location Modifier: Right Edema Location: Ankle Type of Edema: Degree of Edema: 1+ Gastrointestinal Symptoms GI Symtoms: Nausea Tube Present: Bowel Sounds: Recent Bowel Pattern: Stool Characteristics: Nutritional Diagnosis Nutritional Risk Acuity 2: Dysphagia Nutritional Risk Acuity 3: Cancer Past Medical History: metastatic cancer, polio as a child, expressive aphasia, Pleural effusion, Nutritional Acuity: 2-Moderate Nutrition Problem/Etiology/Sym: Inadequate oral intake realted to end of life care as evidenced by physiological causes. Energy Requirement: 1500 (30kcal/kg) Protein Requirement: 50 (1 g/kg) Fluid Requirement: 1250 (25mL/kg) Diet Type: Regular Nutrition Intervention: Cont diet as ordered, Encourage intake Nutrition Monitoring & Eval Nutrition Goals: Nutritional Goals Comment: Provide food and fluid as appropriate for comfort care. RD Patient Assessment Time: [address] Assessment Type: RD Assessment Patient Nutrition Acuity: 2-Moderate Follow Up Date: Aug 22, 2017 Nutritional Comment: Pt admitted from the med floor. PMH: aphagia, polio as a child. metastatic cancer, plueral effusion. Communicates with iPad. Has a history of dysphagia but is not required to follow a dysphagic diet. Diet is as tolerated. po intake is poor. CONNOR DA SILVA Aug 18, 2017 10:00
[2017-08-18] MEDS: PROMETHAZINE 25 MG/ML 1 ML AMP IVP PRN (20:00)
[2017-08-19] MEDS: PROMETHAZINE 25 MG/ML 1 ML AMP IVP PRN (01:22)
[2017-08-19] MEDS ORDERED: ONDANSETRON 4 MG/2 ML VIAL IVP PRN (03:10)
[2017-08-19] MEDS ORDERED: PROMETHAZINE 25 MG/ML 1 ML AMP IVP PRN (03:15)
[2017-08-19] MEDS: MORPHINE 2 MG/ML SYR IVP PRN ×4 (07:36→14:47)
[2017-08-19] MEDS: LORazepam 2 MG/ML VIAL IVP PRN ×4 (07:36→13:51)
--- NOTE | 2017-08-19 15:24 | Death Summary ---
Pronounced Date: Aug 19, 2017 Pronounced Time: 14:55 Preliminary Cause of : Metastatic malignancy of unknown primary Assessment: ascites pleural effusions history of polio expressive aphasia History of Present Illness Please see admission history and physical for details. Hospital Course The patient was initially admitted to the medical floor with abdominal discomfort and dyspnea and was found to have recurrence of his ascites and pleural fluid that had been removed just a few days earlier. CT also showed progression of a widely metastatic cancer (unknown primary). Pathology from the ascitic and pleural fluids showed atypia. The patient and his family elected to transfer him to [facility] for ongoing comfort care. He on 08/19 at 1455 with his family at his bedside. Copies to: STEPHANIE MALLOY MD; SPRING AWAN MD, JULIE A MD Aug 19, 2017 15:24
[2017-08-21] MEDS ORDERED: PATCH REMOVAL 1 EA TP PRN (09:00)
== END 2017-08-19 14:55 | disposition expired | DRG 844 ==
LOC: ECF 12:00
PROVIDERS: ADMIT Family Medicine; ATTEND Family Medicine
DX: C80.0 Disseminated malignant neoplasm, unspecified (principal); R18.0 Malignant ascites; R47.01 Aphasia; J91.0 Malignant pleural effusion; Z51.5 Encounter for palliative care; R62.50 Unspecified lack of expected normal physiological development in childhood; Z87.891 Personal history of nicotine dependence; Z86.12 Personal history of poliomyelitis
CPT/HCPCS: J2060; J2270; J2405; J2550